=== PATIENT | female | born 1945 | race African-American/Black ===

== ENCOUNTER → 2017-02-16 | Outpatient (CLI) | payer MEDICARE, MEDICAID | LOC: WI 11:29 | PROVIDERS: ATTEND Internal Medicine Geriatric Medicine | DX: Z12.31 Encounter for screening mammogram for malignant neoplasm of breast (principal) | CPT/HCPCS: 77067; G0202 ==

== ENCOUNTER → 2017-08-16 | Outpatient (CLI) | payer MEDICARE, MEDICAID ==
--- NOTE | 2017-08-16 17:19 | RADIOLOGY REPORT (SQ) ---
EXAM DESCRIPTION: CHEST PA/LATERAL COMPLETED DATE/TIME: 08/16/2017 4:48 pm REASON FOR STUDY: PNEUMONIA, UNSPECIFIED ORGANISM COMPARISON: None. EXAM PARAMETERS: NUMBER OF VIEWS: two views TECHNIQUE: Digital Frontal and Lateral radiographic views of the chest acquired. RADIATION DOSE: NA LIMITATIONS: none FINDINGS: LUNGS AND PLEURA: No opacities, masses or pneumothorax. No pleural effusion. MEDIASTINUM AND HILAR STRUCTURES: No masses or contour abnormalities. HEART AND VASCULAR STRUCTURES: Heart normal size. No evidence for failure. BONES: No acute findings. HARDWARE: None in the chest. OTHER: No other significant finding. IMPRESSION: NO SIGNIFICANT RADIOGRAPHIC FINDING IN THE CHEST. TECHNICAL DOCUMENTATION: JOB ID: [id number] [employer]- All Rights Reserved
== END ==
LOC: OD 15:15
PROVIDERS: ATTEND Internal Medicine
DX: J18.9 Pneumonia, unspecified organism (principal)
CPT/HCPCS: 71020

== ENCOUNTER → 2018-02-23 | Outpatient (CLI) | payer MEDICARE, MEDICAID ==
--- NOTE | 2018-02-24 16:53 | WOMENS IMAGING REPORT ---
EXAM DESCRIPTION: 3D SCREENING MAMMO BILAT COMPLETED DATE/TIME: 02/23/2018 11:24 am REASON FOR STUDY: ROUTINE SCREENING; Z12.31 Z12.31 ENCNTR SCREEN MAMMOGRAM FOR MALIGNANT NEOPLASM O F MARIBELL COMPARISON: [id number] TECHNIQUE: Standard craniocaudal and mediolateral oblique views of each breast recorded using digita l acquisition and breast tomosynthesis. LIMITATIONS: None. FINDINGS: No masses, calcifications or architectural distortion. No areas of suspicion. Read with the assistance of CAD. .[facility] - R2 Cenova Version 1.3 .[facility] - R2 Cenova Version 1.3 .[facility] - R2 Cenova Version 2.4 .[facility] - R2 Cenova Version 2.4 .[facility] - R2 Firewall [employer] Version 9.2 IMPRESSION: NORMAL MAMMOGRAM. BIRADS 1. BREAST DENSITY: a. The breasts are almost entirely fatty. BIRAD: 1 NEGATIVE RECOMMENDATION: ROUTINE SCREENING COMMENT: The patient has been notified of the results by letter per SA requirements. Additional no tification policies are in place for contacting patient with suspicious or incomplete findings. Quality ID #[id number]: The [employer] recommends an annual screening mammogram for women aged 40 years or over. This facility utilizes a reminder system to ensure that all patients receive reminder letters, and/or direct phone calls for appointments. This includes reminders for routine scr eening mammograms, diagnostic mammograms, or other Breast Imaging Interventions when appropriate. Th is patient will be placed in the appropriate reminder system. The [employer] (ACR) has developed recommendations for screening MRI of the breast s in certain patient populations, to be used in conjunction with mammography. Breast MRI surveillanc e may be appropriate for women with more than 20% lifetime risk of developing breast cancer as deter mined by genetic testing, significant family history of the disease, or history of mantle radiation f or Hodgkins Disease. ACR Practice Guidelines 2008. DBT Technology DBT is a type of tomographic mammography. With conventional mammography, overlapping breast tissue ma y make lesions difficult to detect, even with good compression. DBT uses an x-ray tube that rotates a round the breast, taking images at different angles. These images are then combined to create thin sl ices of the breast that the radiologist can view as a 3D reconstruction. The [employer] unit can perform full-field digital mammograms (2D imaging); or DBT (3D imaging); or both, in a combination mode that quickly performs both the mammogram and the tomosynthesis scan while the breast is still compressed. PQRS 6045F: Fluoroscopic imaging is not utilized for breast tomosynthesis. TECHNICAL DOCUMENTATION: FINDING NUMBER: (1) ASSESSMENT: (1) JOB ID: [id number] [employer]- All Rights Reserved Reading location - IP/workstation name: [email or web address] [id number]
== END ==
LOC: WI 10:51
PROVIDERS: ATTEND Internal Medicine
DX: Z12.31 Encounter for screening mammogram for malignant neoplasm of breast (principal)
CPT/HCPCS: 77063; 77067

== ENCOUNTER 2019-01-31 14:59 | Day surgery (SDC) | payer MEDICARE, MEDICAID ==
[2019-01-31] MEDS ORDERED: ONDANSETRON HCL INJ/PF 4 MG/2 ML SDV ONE (15:30)
[2019-01-31] MEDS ORDERED: DIPHENHYDRAMINE HCL 50 MG/ML VIAL ONE (15:30)
[2019-01-31] MEDS ORDERED: EPINEPHRINE INJ 1 MG/10 ML DISP.SYRIN ONE (15:31)
[2019-01-31] MEDS ORDERED: GLUCAGON,HUMAN RECOMB 1 MG INJ ONE (15:31)
[2019-01-31] MEDS ORDERED: FLUMAZENIL INJ 0.5 MG/5 ML VIAL ONE (15:31)
[2019-01-31] MEDS ORDERED: NALOXONE HCL INJ/PF 0.4 MG/1 ML SDV ONE (15:31)
[2019-01-31] MEDS: MIDAZOLAM 2 MG/2 ML INJ ONE ×2 (15:48→15:54)
[2019-01-31] MEDS: FENTANYL CITRATE INJ/PF 100 MCG/2 ML AMPUL ONE ×2 (15:50→15:56)
--- NOTE | 2019-01-31 16:21 | Operative Report ---
Operative Report DATE OF SURGERY: 01/31/19 Operative Report: Pre-op diagnosis: Rectal bleeding history of colon polyps Post-op diagnosis: 1. Polyps in the transverse and descending colon 2. Internal hemorrhoids 3. Tight anal sphincter Surgery: Colonoscopy with polypectomy Medications: Versed 3mg, Fentanyl 100mcg IV push Tissue removed: Colon polyps Procedure: After informed consent obtained from patient, conscious sedation was achieved. A digital rectal examination was performed and this was unremarkable. The colonoscope was inserted into the rectum and advanced to the cecum. The appendiceal orifice and the terminal ileum were both identified. The mucosa was examined into details as the colonoscope was slowly pulled out of the patient. The endoscope was retroflexed in the rectum. Patient tolerated the procedure well. Findings Terminal ileum: Cecum: Normal Ascending colon: Normal Transverse colon: Three 3 to 4 mm polyps removed with a hot snare Descending colon: 4 mm polyp removed with a hot snare Sigmoid colon: Normal Rectum: Normal except for internal hemorrhoids. The anal sphincter was tight Plan: Await pathology OPERATION: .
[2019-01-31 17:11] VITALS: BP 135/54
== END 2019-01-31 17:15 | disposition home or self-care (01) ==
LOC: END 14:59
PROVIDERS: ATTEND Internal Medicine Gastroenterology
DX: D12.3 Benign neoplasm of transverse colon (principal); D12.4 Benign neoplasm of descending colon; K64.8 Other hemorrhoids; Z86.010 Personal history of colon polyps; K62.5 Hemorrhage of anus and rectum; K21.9 Gastro-esophageal reflux disease without esophagitis; Z87.11 Personal history of peptic ulcer disease; E66.9 Obesity, unspecified; E78.00 Pure hypercholesterolemia, unspecified; I10 Essential (primary) hypertension; I25.2 Old myocardial infarction; E11.9 Type 2 diabetes mellitus without complications; M06.9 Rheumatoid arthritis, unspecified; I20.9 Angina pectoris, unspecified; M32.9 Systemic lupus erythematosus, unspecified; Z68.43 Body mass index [BMI] 50.0-59.9, adult; Z79.899 Other long term (current) drug therapy; Z79.01 Long term (current) use of anticoagulants; Z79.51 Long term (current) use of inhaled steroids; Z86.718 Personal history of other venous thrombosis and embolism; Z91.041 Radiographic dye allergy status; Z91.09 Other allergy status, other than to drugs and biological substances
CPT/HCPCS: 45385; 82962; 88305 ×2; J2250; J3010; J0171; J1200; J1610; J2310; J2405; J3490

== ENCOUNTER 2020-06-15 10:38 | Inpatient (IN) | payer MEDICARE, MEDICAID ==
[2020-06-15] MEDS ORDERED: VANCOMYCIN HCL 0 MG in DEXTROSE 5%-WATER 250 ML IV NR (11:00)
[2020-06-15] MEDS ORDERED: ENOXAPARIN SODIUM INJ 40 MG/0.4 ML DISP.SYRIN SUBCUT ONE (12:00)
[2020-06-15 12:06] LABS: ABSOLUTE EOSINOPHILS # (AUTO) 0.1 10^3/uL (0.0-0.6); ABSOLUTE LYMPHOCYTES (AUTO) 0.7 10^3/uL (0.5-4.7); ABSOLUTE MONOCYTES (AUTO) 0.4 10^3/uL (0.1-1.4); ABSOLUTE NEUT (AUTO) 12.3 10^3/uL (1.7-8.2); BASOPHILS % (AUTO) 0.1 % (0-2); EOSINOPHILS % (AUTO) 0.7 % (0-6); HEMOGLOBIN 10.8 g/dL (12.0-15.5); LYMPHOCYTES % (AUTO) 5.5 % (13-45); MEAN CORPUSCULAR HEMOGLOBIN 33.7 pg (27.0-33.4); MEAN CORPUSCULAR HGB CONC 33.9 g/dL (32.0-36.0); MEAN CORPUSCULAR VOLUME 100 fl (80-97); MONOCYTES % (AUTO) 2.8 % (3-13); PLATELET COUNT 179 10^3/uL (150-450); RED BLOOD COUNT 3.21 10^6/uL (3.72-5.28); SEGMENTED NEUTROPHILS % (AUTO) 90.9 % (42-78); TOTAL CELLS COUNTED % (AUTO) 100 %; WHITE BLOOD COUNT 13.5 10^3/uL (4.0-10.5)
[2020-06-15] MEDS ORDERED: ALBUTEROL SULFATE 0.083% NEB 2.5 MG/3 ML AMPUL NEB PRN (12:22)
[2020-06-15] MEDS ORDERED: (PENDING PHARMACY ID) (Levocetirizine Dihydrochloride [Xyzal 5 Mg Tablet] 5 MG) PO PRN (12:23)
[2020-06-15] MEDS ORDERED: METFORMIN HCL 500 MG TABLET PO PRN (12:23)
[2020-06-15] MEDS ORDERED: (PENDING PHARMACY ID) (Ondansetron Hcl [Zofran 4 Mg Tablet] 4 MG) PO PRN (12:23)
[2020-06-15] MEDS ORDERED: FLUTICASONE NASAL SPRAY 50 MCG/SPRY 120 SPRAY/16 GM NASL PRN (12:23)
[2020-06-15 12:27] LABS: INTERNATIONAL RATION (INR) 1.46; PROTHROMBIN TIME 17.8 SEC (11.4-15.4)
[2020-06-15 12:28] LABS: ALBUMIN 3.1 g/dL (3.5-5.0); ALKALINE PHOSPHATASE 59 U/L (38-126); AMYLASE 44 U/L (30-110); ANION GAP 10 (5-19); ASPARTATE AMINO TRANSFERASE 25 U/L (14-36); BILIRUBIN,DIRECT 0.6 mg/dL (0.0-0.4); BILIRUBIN,TOTAL 1.5 mg/dL (0.2-1.3); BLOOD UREA NITROGEN 18 mg/dL (7-20); CALCIUM 9.7 mg/dL (8.4-10.2); CARBON DIOXIDE 27 mmol/L (22-30); CHLORIDE 98 mmol/L (98-107); GLUCOSE 115 mg/dL (75-110); PARTIAL THROMBOPLASTIN TIME 42.6 SEC (23.5-35.8); PHOSPHORUS 2.8 mg/dL (2.5-4.5); POTASSIUM 3.1 mmol/L (3.6-5.0); TOTAL PROTEIN 5.6 g/dL (6.3-8.2)
[2020-06-15] MEDS ORDERED: (PENDING PHARMACY ID) (Valsartan/Hydrochlorothiazide [Diovan Hct 160-12.5 Mg Tab] 1 TAB) PO SCH (12:30)
[2020-06-15 12:40] LABS: CREATINE KINASE MB 0.52 ng/mL (<4.55); TROPONIN I 0.022 ng/mL
[2020-06-15 12:44] LABS: FREE T4 (FREE THYROXINE) 1.98 ng/dL (0.78-2.19)
[2020-06-15] MEDS: METOPROLOL SUCCINATE 50 MG TAB.SR.24H PO SCH (12:50)
[2020-06-15 12:58] LABS: THYROID STIMULATING HORMONE 1.7 uIU/mL (0.47-4.68)
[2020-06-15] MEDS ORDERED: CETIRIZINE 5 MG TABLET PO PRN (13:03)
[2020-06-15] MEDS ORDERED: ONDANSETRON 4 MG TAB.RAPDIS PO PRN (13:05)
[2020-06-15 13:37] LABS: APPEARANCE,URINE CLOUDY; BILIRUBIN,URINE NEGATIVE (NEGATIVE); COLOR,URINE AMBER; GLUCOSE, URINE NEGATIVE (NEGATIVE); KETONES,URINE NEGATIVE (NEGATIVE); LEUKOCYTE ESTERASE,URINE NEGATIVE (NEGATIVE); NITRITE,URINE NEGATIVE (NEGATIVE); PROTEIN,URINE 100 mg/dL (NEGATIVE); URINE SPECIFIC GRAVITY 1.025; UROBILINOGEN,URINE NEGATIVE mg/dL (<2.0)
--- NOTE | 2020-06-15 13:47 | PDOC H&P ---
History of Present Illness Admission Date/PCP: 06/15/20 10:38 HAYES BRAY MD History of Present Illness: ANUSHKA ANNE is a 74 year old female she has multiple comorbid conditions including rheumatoid arthritis, morbid obesity, type 2 diabetes mellitus, sedentary lifestyle uses wheelchair for ambulation, I saw her in the office 2 days ago, specifically June 13, 2020 when she came for evaluation of left upper arm cellulitis, because of her multiple comorbid conditions I advised inpatient care but patient refused because she was concerned about the SARS-CoV-2 infection and the chance of being exposed to the virus so she preferred to be treated outpatient. She was prescribed clindamycin, MRSA was suspected as the most likely etiology of the cellulitis, she was advised to call me back in 2 days if no improvement. She comes in this morning complaining of worsening of her condition, I spoke to the nurse power and recovery supervisor for bed, she was admitted directly from home to the hospital. I saw her today in the hospital on the medical floor there is worsening of the cellulitis now extensive involving the forearm. Initially it was localized to the upper arm. Past Medical History Cardiac Medical History: Reports: Coronary Artery Disease - H/O VALVE D/O, DVT, Myocardial Infarction - 1997- MILD , Hyperlipidema, Hypertension - ON MEDS Pulmonary Medical History: Reports: Asthma - use inhaler PRN Endocrine Medical History: Reports: Diabetes Mellitus Type 2 GI Medical History: Reports: Hiatal Hernia - no px now Musculoskeltal Medical History: Reports: Arthritis - RA, OSTEO, PSORIATIC Hematology: Reports: Anemia - YRS AGO Past Surgical History Past Surgical History: Reports: Hysterectomy, Tubal Ligation Social History Smoking Status: Former Smoker Frequency of Alcohol Use: None Hx Recreational Drug Use: No Hx Prescription Drug Abuse: No Family History Family History: Reviewed & Not Pertinent Parental Family History Reviewed: Yes Children Family History Reviewed: Yes Sibling(s) Family History Reviewed.: Yes Medication/Allergy Home Medications: RX: Fluticasone Propionate [Flonase Nasal Kingston 50 Mcg/[place] 16 gm] 2 sprays NASL DAILYP PRN 12/21/14 RX: Folic Acid 1 mg PO SUMOWETHFRSA@1000 12/21/14 RX: Hydroxychloroquine Sulfate [Plaquenil 200 mg Tablet] 200 mg PO BID 12/21/14 RX: Metformin HCl [Glucophage 500 mg Tablet] 500 mg PO ASDIR PRN 12/21/14 RX: Pravastatin Sodium [Pravachol] 40 mg PO QHS 12/21/14 RX: Valsartan/Hydrochlorothiazide [Diovan Hct 160-12.5 mg Tab] 1 tab PO DAILY 12/21/14 Apixaban [Eliquis 5 mg Tablet] 5 mg PO Q12 03/12/15 Levocetirizine Dihydrochloride [Xyzal 5 mg Tablet] 5 mg PO DAILYP PRN 03/12/15 Metoprolol Succinate [Toprol Xl 50 mg Tab.sr] 100 mg PO DAILY 03/12/15 RX: Prednisone 5 mg PO DAILY 03/12/15 Cyclosporine 0.05% Oph Emulsio [Restasis 0.05% Opthalmic Droperette] 1 drop OU DAILY 01/30/19 Hydrocodone Bit/Acetaminophen [Hydrocodon-Acetaminophen 5-325] 1 each PO TIDP PRN 01/30/19 Ondansetron HCl [Zofran 4 mg Tablet] 4 mg PO Q4HP PRN 06/15/20 RX: Albuterol Sulfate [Ventolin 0.083% Neb 2.5 mg/3 mL Ampul] 1 vial NEB RTQ6HP PRN 06/15/20 RX: Ergocalciferol (Vitamin D2) [Drisdol 50,000 unit (1.25MG) Capsule] 50,000 unit PO MO@1000 06/15/20 RX: Methotrexate Sodium [Rheumatrex 2.5 mg Tablet] 20 mg PO TU@1000 06/15/20 RX: Tizanidine HCl [Zanaflex 4 mg Tablet] 4 mg PO Q8HP PRN 06/15/20 Allergies/Adverse Reactions: Iodinated Contrast Media [IV Dye, Iodine Containing] Allergy (Verified 01/31/19 14:55) ketorolac tromethamine [From Toradol] Allergy (Verified 01/31/19 14:55) Penicillins Allergy (Verified 01/31/19 14:55) Shellfish * [Shellfish] Allergy (Verified 01/31/19 14:55) acetaminophen [From Percocet] Adverse Reaction (Verified 01/31/19 14:55) oxycodone HCl [From Percocet] Adverse Reaction (Verified 01/31/19 14:55) Review of Systems Constitutional: PRESENT: chills, fever(s) Eyes: ABSENT: visual disturbances Ears: ABSENT: hearing changes Cardiovascular: ABSENT: chest pain, dyspnea on exertion, edema, orthropnea, palpitations Respiratory: ABSENT: cough, hemoptysis Gastrointestinal: PRESENT: nausea Genitourinary: ABSENT: dysuria, hematuria Musculoskeletal: ABSENT: joint swelling Integumentary: PRESENT: erythema Neurological: ABSENT: abnormal gait, abnormal speech, confusion, dizziness, focal weakness, syncope Psychiatric: ABSENT: anxiety, depression, homidical ideation, suicidal ideation Endocrine: ABSENT: cold intolerance, heat intolerance, menstrual abnormalities, polydipsia, polyuria Hematologic/Lymphatic: ABSENT: easy bleeding, easy bruising, lymphadenopathy Physical Exam Vital Signs: Temp Pulse Resp BP Pulse Ox 99.8 F 118 H 16 113/54 L 95 06/15/20 11:08 06/15/20 11:08 06/15/20 11:08 06/15/20 11:08 06/15/20 11:08 Intake & Output 06/14/20 06/15/20 06/16/20 06:59 06:59 06:59 Weight 91 kg General appearance: PRESENT: obese Head exam: PRESENT: atraumatic, normocephalic Eye exam: PRESENT: PERRLA Mouth exam: PRESENT: moist, tongue midline Neck exam: PRESENT: full ROM Respiratory exam: PRESENT: crackles Cardiovascular exam: PRESENT: RRR, +S1, +S2 Pulses: PRESENT: normal dorsalis pedis pul, +2 pedal pulses bilateral Vascular exam: PRESENT: normal capillary refill GI/Abdominal exam: PRESENT: normal bowel sounds, soft Rectal exam: PRESENT: deferred Extremities exam: PRESENT: other - There is erythema of the left upper arm Neurological exam: PRESENT: alert, awake, oriented to person, oriented to place, oriented to time, oriented to situation, CN II-XII grossly intact Psychiatric exam: PRESENT: appropriate affect, normal mood Skin exam: PRESENT: dry, intact, warm Results Laboratory Results: 06/15/20 11:56 06/15/20 11:56 06/15/20 06/15/20 06/15/20 11:56 11:56 11:56 WBC 13.5 H RBC 3.21 L Hgb 10.8 L Hct 32.0 L MCV 100 H MCH 33.7 H MCHC 33.9 RDW 16.0 H Plt Count 179 Seg Neutrophils % 90.9 H Sodium 135.0 L Potassium 3.1 L Chloride 98 Carbon Dioxide 27 Anion Gap 10 BUN 18 Creatinine 1.51 H Est GFR ( Amer) 41 L Glucose 115 H Calcium 9.7 Phosphorus 2.8 Magnesium 1.5 L Total Bilirubin 1.5 H AST 25 Alkaline Phosphatase 59 Ammonia Total Protein 5.6 L Albumin 3.1 L Amylase 44 Lipase 103.2 TSH 1.70 Free T4 1.98 06/15/20 11:56 WBC RBC Hgb Hct MCV MCH MCHC RDW Plt Count Seg Neutrophils % Sodium Potassium Chloride Carbon Dioxide Anion Gap BUN Creatinine Est GFR ( Amer) Glucose Calcium Phosphorus Magnesium Total Bilirubin AST Alkaline Phosphatase Ammonia < 8.7 L Total Protein Albumin Amylase Lipase TSH Free T4 06/15/20 06/15/20 11:56 11:56 Creatine Kinase 99 CK-MB (CK-2) 0.52 Troponin I 0.022 Assessment & Plan - Diagnosis (1) Cellulitis of left upper arm Is this a current diagnosis for this admission?: Yes Plan: She has penicillin allergy, she is empirically started on vancomycin and aztreonam, vancomycin will cover MRSA, aztreonam will cover potential gram-positive and gram-negative organisms (2) Failure of outpatient treatment Is this a current diagnosis for this admission?: Yes (3) Rheumatoid arthritis Qualifiers: Rheumatoid arthritis location: unspecified site Rheumatoid factor presence: with rheumatoid factor Qualified Code(s): M05.9 - Rheumatoid arthritis with rheumatoid factor, unspecified Is this a current diagnosis for this admission?: Yes (4) SLE (systemic lupus erythematosus related syndrome) Is this a current diagnosis for this admission?: Yes (5) T2DM (type 2 diabetes mellitus) Qualifiers: Diabetes mellitus senior care insulin use: without senior care use Diabetes mellitus complication status: with neurologic complications Diabetes mellitus complication detail: with polyneuropathy Qualified Code(s): E11.42 - Type 2 diabetes mellitus with diabetic polyneuropathy Is this a current diagnosis for this admission?: Yes Plan: Continue present treatment (6) Personal history of DVT (deep vein thrombosis) Is this a current diagnosis for this admission?: Yes Plan: Continue oral anticoagulant (7) Morbid obesity Is this a current diagnosis for this admission?: Yes (8) Hypokalemia Is this a current diagnosis for this admission?: Yes Plan: Replace potassium (9) Hypomagnesemia Is this a current diagnosis for this admission?: Yes Plan: Replace magnesium - Time Time Spent: Greater than 70 Minutes Anticipated Discharge Disposition: Home, Self Care Anticipated Discharge Timeframe: within 7 days
[2020-06-15 13:56] LABS: URINE AMPHETAMINES SCREEN NEGATIVE; URINE BARBITURATES SCREEN NEGATIVE; URINE BENZODIAZEPINES SCREEN NEGATIVE; URINE COCAINE SCREEN NEGATIVE; URINE MARIJUANA (THC) SCREEN NEGATIVE; URINE METHADONE SCREEN NEGATIVE; URINE PHENCYCLIDINE SCREEN NEGATIVE
[2020-06-15] MEDS ORDERED: MAGNESIUM SULFATE/D5W 1 GM/100 ML RTUPB IV ONE (14:30)
[2020-06-15] MEDS: ONDANSETRON HCL INJ/PF 4 MG/2 ML SDV IV PRN ×3 (14:36→23:52)
[2020-06-15] MEDS: HYDROCHLOROTHIAZIDE 12.5 MG TABLET PO SCH (14:37)
[2020-06-15] MEDS: CYCLOSPORINE 0.05% OPH EMULSIO 0.4 ML DROPERETTE OU SCH (14:38)
[2020-06-15] MEDS: HYDROXYCHLOROQUINE SULFATE 200 MG TABLET PO SCH ×2 (14:38→21:12)
[2020-06-15] MEDS: VALSARTAN 160 MG TABLET PO SCH (14:38)
[2020-06-15 15:02] LABS: C DIFFICILE GDH NEGATIVE (NEGATIVE)
[2020-06-15] MEDS: AZTREONAM 1 GM in DEXTROSE 5%-WATER 50 ML IV SCH ×2 (16:01→23:52)
[2020-06-15 17:05] LABS: CREATINE KINASE MB 0.41 ng/mL (<4.55); TROPONIN I 0.023 ng/mL
[2020-06-15] MEDS: POTASSI CL 20 MEQ/50 ML RIDER 20 MEQ/50 ML RTUPB IV SCH ×2 (17:20→19:35)
[2020-06-15] MEDS: VANCOMYCIN HCL 1,000 MG in DEXTROSE 5%-WATER 250 ML IV SCH (21:10)
[2020-06-15] MEDS: APIXABAN 5 MG TABLET PO SCH (21:11)
[2020-06-15] MEDS: ATORVASTATIN CALCIUM 10 MG TABLET PO SCH (21:12)
[2020-06-15] MEDS ORDERED: (PENDING PHARMACY ID) (Pravastatin Sodium [Pravachol] 40 MG) PO SCH (22:00)
[2020-06-15 23:46] LABS: CREATINE KINASE MB 0.36 ng/mL (<4.55); TROPONIN I 0.02 ng/mL
[2020-06-16] MEDS: NORMAL SALINE 1000 ML 1,000 ML IV PRN ×2 (03:04→22:39)
[2020-06-16 06:31] LABS: ABSOLUTE EOSINOPHILS # (AUTO) 0.2 10^3/uL (0.0-0.6); ABSOLUTE LYMPHOCYTES (AUTO) 0.9 10^3/uL (0.5-4.7); ABSOLUTE MONOCYTES (AUTO) 0.4 10^3/uL (0.1-1.4); ABSOLUTE NEUT (AUTO) 6.3 10^3/uL (1.7-8.2); BASOPHILS % (AUTO) 0.5 % (0-2); EOSINOPHILS % (AUTO) 2.3 % (0-6); HEMATOCRIT 26.8 % (36.0-47.0); HEMOGLOBIN 9.2 g/dL (12.0-15.5); LYMPHOCYTES % (AUTO) 11.7 % (13-45); MEAN CORPUSCULAR HEMOGLOBIN 34.3 pg (27.0-33.4); MEAN CORPUSCULAR HGB CONC 34.4 g/dL (32.0-36.0); MEAN CORPUSCULAR VOLUME 100 fl (80-97); MONOCYTES % (AUTO) 4.9 % (3-13); PLATELET COUNT 185 10^3/uL (150-450); RED BLOOD COUNT 2.68 10^6/uL (3.72-5.28); RED CELL DISTRIBUTION WIDTH 16.3 % (11.5-14.0); SEGMENTED NEUTROPHILS % (AUTO) 80.6 % (42-78); TOTAL CELLS COUNTED % (AUTO) 100 %; WHITE BLOOD COUNT 7.8 10^3/uL (4.0-10.5)
[2020-06-16] MEDS: AZTREONAM 1 GM in DEXTROSE 5%-WATER 50 ML IV SCH ×3 (06:34→21:05)
[2020-06-16 06:52] LABS: ALBUMIN 2.7 g/dL (3.5-5.0); ALKALINE PHOSPHATASE 53 U/L (38-126); ANION GAP 9 (5-19); ASPARTATE AMINO TRANSFERASE 23 U/L (14-36); BILIRUBIN,DIRECT 0.4 mg/dL (0.0-0.4); BILIRUBIN,TOTAL 0.9 mg/dL (0.2-1.3); BLOOD UREA NITROGEN 23 mg/dL (7-20); CARBON DIOXIDE 23 mmol/L (22-30); CHLORIDE 102 mmol/L (98-107); CHOLESTEROL 140.37 mg/dL (0-200); GLUCOSE 97 mg/dL (75-110); POTASSIUM 3.9 mmol/L (3.6-5.0); TOTAL PROTEIN 5.1 g/dL (6.3-8.2); TRIGLYCERIDES 122 mg/dL (<150)
[2020-06-16 07:03] LABS: DIRECT LDL 81 mg/dL (<100)
[2020-06-16] MEDS: HYDROXYCHLOROQUINE SULFATE 200 MG TABLET PO SCH ×2 (09:38→21:05)
[2020-06-16] MEDS: APIXABAN 5 MG TABLET PO SCH ×2 (09:39→21:05)
[2020-06-16] MEDS: METOPROLOL SUCCINATE 50 MG TAB.SR.24H PO SCH ×2 (09:39→09:45)
[2020-06-16] MEDS: HYDROCHLOROTHIAZIDE 12.5 MG TABLET PO SCH (09:40)
[2020-06-16] MEDS: VALSARTAN 160 MG TABLET PO SCH (09:40)
[2020-06-16] MEDS: CYCLOSPORINE 0.05% OPH EMULSIO 0.4 ML DROPERETTE OU SCH (09:41)
[2020-06-16] MEDS: FOLIC ACID 1 MG TABLET PO SCH (09:42)
[2020-06-16] MEDS ORDERED: ENOXAPARIN SODIUM INJ 40 MG/0.4 ML DISP.SYRIN SUBCUT SCH (10:00)
--- NOTE | 2020-06-16 12:11 | RADIOLOGY REPORT (SQ) ---
EXAM DESCRIPTION: U/S RETROPERITON (RENAL/AORTA) IMAGES COMPLETED DATE/TIME: 06/16/2020 11:56 am REASON FOR STUDY: acute kidney injury COMPARISON: None. TECHNIQUE: Dynamic and static grayscale images acquired of the kidneys and bladder and recorded on P ACS. Additional selected color Doppler and spectral images recorded. LIMITATIONS: None. FINDINGS: RIGHT KIDNEY: 8.6 cm. Normal echogenicity. No solid or suspicious masses. No hydron ephrosis. No calcifications. LEFT KIDNEY: 9.1 cm. 2 cm cyst upper pole. No solid or suspicious masses. No hydronephrosis. No calcifications. BLADDER: Not visualized. OTHER FINDINGS: No other significant finding. IMPRESSION: No hydronephrosis. TECHNICAL DOCUMENTATION: JOB ID: [id number] 2010 [employer]- All Rights Reserved Reading location - IP/workstation name: [email or web address]
--- NOTE | 2020-06-16 12:15 | PDOC PROGRESS REPORT ---
Subjective Progress Note for:: 06/16/20 Subjective:: Patient seen by the bedside, she had episode of large-volume diarrhea since yesterday, the serum creatinine is 2 from today's lab work suggesting prerenal azotemia. The stool studies negative for C. difficile toxin, the diarrhea is most likely related to the clindamycin that she took outpatient for the cellulitis. Reason For Visit: SEVERE CELLULITIS OF THE LEFT UPPER EXTREMITY, Physical Exam Vital Signs: Temp Pulse Resp BP Pulse Ox 98.1 F 86 16 100/45 L 100 06/16/20 10:59 06/16/20 10:59 06/16/20 10:59 06/16/20 10:59 06/16/20 10:59 Intake & Output 06/15/20 06/16/20 06/17/20 06:59 06:59 06:59 Intake Total 630 Output Total 40 Balance 590 Weight 91 kg General appearance: PRESENT: no acute distress Eye exam: PRESENT: PERRLA Respiratory exam: PRESENT: clear to auscultation saúl Cardiovascular exam: PRESENT: +S1, +S2 GI/Abdominal exam: PRESENT: soft Neurological exam: PRESENT: alert Results Laboratory Results: 06/16/20 04:44 06/16/20 04:44 06/15/20 06/15/20 06/15/20 11:56 11:56 11:56 WBC RBC Hgb Hct MCV MCH MCHC RDW Plt Count Seg Neutrophils % Sodium 135.0 L Potassium 3.1 L Chloride 98 Carbon Dioxide 27 Anion Gap 10 BUN 18 Creatinine 1.51 H Est GFR ( Amer) 41 L Glucose 115 H Calcium 9.7 Phosphorus 2.8 Magnesium 1.5 L Total Bilirubin 1.5 H AST 25 Alkaline Phosphatase 59 Ammonia < 8.7 L C-Reactive Protein Total Protein 5.6 L Albumin 3.1 L Triglycerides Cholesterol LDL Cholesterol Direct VLDL Cholesterol HDL Cholesterol Amylase 44 Lipase 103.2 TSH 1.70 Free T4 1.98 Urine Color Urine Appearance Urine pH Ur Specific [place] Urine Protein Urine Glucose (UA) Urine Ketones Urine Blood Urine Nitrite Ur Leukocyte Esterase Urine WBC (Auto) Urine RBC (Auto) Stool Occult Blood 06/15/20 06/15/20 06/15/20 11:56 12:58 14:10 WBC RBC Hgb Hct MCV MCH MCHC RDW Plt Count Seg Neutrophils % Sodium Potassium Chloride Carbon Dioxide Anion Gap BUN Creatinine Est GFR ( Amer) Glucose Calcium Phosphorus Magnesium Total Bilirubin AST Alkaline Phosphatase Ammonia C-Reactive Protein 344.3 H Total Protein Albumin Triglycerides Cholesterol LDL Cholesterol Direct VLDL Cholesterol HDL Cholesterol Amylase Lipase TSH Free T4 Urine Color KUSHAL Urine Appearance CLOUDY Urine pH 5.0 Ur Specific [place] 1.025 Urine Protein 100 H Urine Glucose (UA) NEGATIVE Urine Ketones NEGATIVE Urine Blood NEGATIVE Urine Nitrite NEGATIVE Ur Leukocyte Esterase NEGATIVE Urine WBC (Auto) 31 Urine RBC (Auto) 8 Stool Occult Blood NEGATIVE 06/16/20 06/16/20 04:44 04:44 WBC 7.8 RBC 2.68 L Hgb 9.2 L Hct 26.8 L MCV 100 H MCH 34.3 H MCHC 34.4 RDW 16.3 H Plt Count 185 Seg Neutrophils % 80.6 H Sodium 133.6 L Potassium 3.9 Chloride 102 Carbon Dioxide 23 Anion Gap 9 BUN 23 H Creatinine 2.03 H Est GFR ( Amer) 29 L Glucose 97 Calcium 9.0 Phosphorus Magnesium Total Bilirubin 0.9 AST 23 Alkaline Phosphatase 53 Ammonia C-Reactive Protein Total Protein 5.1 L Albumin 2.7 L Triglycerides 122 Cholesterol 140.37 LDL Cholesterol Direct 81 VLDL Cholesterol 24.0 HDL Cholesterol 52 Amylase Lipase TSH Free T4 Urine Color Urine Appearance Urine pH Ur Specific [place] Urine Protein Urine Glucose (UA) Urine Ketones Urine Blood Urine Nitrite Ur Leukocyte Esterase Urine WBC (Auto) Urine RBC (Auto) Stool Occult Blood 06/15/20 06/15/20 06/15/20 11:56 11:56 16:20 Creatine Kinase 99 79 CK-MB (CK-2) 0.52 Troponin I 0.022 06/15/20 06/15/20 06/15/20 16:20 22:58 22:58 Creatine Kinase 69 CK-MB (CK-2) 0.41 0.36 Troponin I 0.023 0.020 Assessment & Plan - Diagnosis (1) Cellulitis of left upper arm Is this a current diagnosis for this admission?: Yes Plan: There is improvement in the cellulitis continue the IV vancomycin and aztreonam (2) Failure of outpatient treatment Is this a current diagnosis for this admission?: Yes (3) Rheumatoid arthritis Qualifiers: Rheumatoid arthritis location: unspecified site Rheumatoid factor presence: with rheumatoid factor Qualified Code(s): M05.9 - Rheumatoid arthritis with rheumatoid factor, unspecified Is this a current diagnosis for this admission?: Yes (4) SLE (systemic lupus erythematosus related syndrome) Is this a current diagnosis for this admission?: Yes (5) T2DM (type 2 diabetes mellitus) Qualifiers: Diabetes mellitus residential insulin use: without terminal manager use Diabetes mellitus complication status: with neurologic complications Diabetes mellitus complication detail: with polyneuropathy Qualified Code(s): E11.42 - Type 2 diabetes mellitus with diabetic polyneuropathy Is this a current diagnosis for this admission?: Yes (6) Personal history of DVT (deep vein thrombosis) Is this a current diagnosis for this admission?: Yes (7) Morbid obesity Is this a current diagnosis for this admission?: Yes (8) Hypokalemia Is this a current diagnosis for this admission?: Yes (9) Hypomagnesemia Is this a current diagnosis for this admission?: Yes (10) Acute kidney injury Is this a current diagnosis for this admission?: Yes Plan: This is most likely prerenal azotemia from the diarrhea due to volume loss, increase normal saline infusion rate from 50 to 120 cc/h. Obtain kidney ultrasound to rule out post renal azotemia though unlikely - Time Time Spent with patient: 35 or more minutes Level of Care: MEDICAL Medications reviewed and adjusted accordingly: Yes Anticipated discharge: Home - Inpatient Certification Based on my medical assessment, after consideration of the patient's comorbidities, presenting symptoms, or acuity I expect that the services needed warrant INPATIENT care.: Yes I certify that my determination is in accordance with my understanding of Medicare's requirements for reasonable and necessary INPATIENT services [42 CFR 412.3e].: Yes
[2020-06-16 13:24] LABS: URINE PROTEIN 18.8 mg/dL (<12)
[2020-06-16 13:26] LABS: URINE CREATININE 460.3 mg/dL (15-278)
[2020-06-16] MEDS ORDERED: DIPHENOXYLATE HCL/ATROP SULF 2.5-0.025 MG TABLET PO PRN (14:39)
[2020-06-16] MEDS: LACTOBACILLUS ACIDOPHILUS 250 MG TAB PO SCH ×2 (14:52→21:05)
[2020-06-16] MEDS: DIPHENOXYLATE HCL/ATROP SULF 2.5-0.025 MG TABLET PO PRN ×2 (14:52→21:18)
[2020-06-16] MEDS: VANCOMYCIN HCL 1,000 MG in DEXTROSE 5%-WATER 250 ML IV SCH (14:53)
[2020-06-16] MEDS: ATORVASTATIN CALCIUM 10 MG TABLET PO SCH (21:05)
[2020-06-17] MEDS: ONDANSETRON HCL INJ/PF 4 MG/2 ML SDV IV PRN ×2 (00:21→12:52)
[2020-06-17] MEDS: ACETAMINOPHEN SOLN 325 MG/10.15 ML UDCUP PO PRN ×3 (00:22→20:34)
[2020-06-17] MEDS: AZTREONAM 1 GM in DEXTROSE 5%-WATER 50 ML IV SCH ×3 (06:11→23:13)
[2020-06-17] MEDS: DIPHENOXYLATE HCL/ATROP SULF 2.5-0.025 MG TABLET PO PRN (06:11)
[2020-06-17 07:04] LABS: ABSOLUTE EOSINOPHILS # (AUTO) 0.4 10^3/uL (0.0-0.6); ABSOLUTE LYMPHOCYTES (AUTO) 0.8 10^3/uL (0.5-4.7); ABSOLUTE MONOCYTES (AUTO) 0.7 10^3/uL (0.1-1.4); ABSOLUTE NEUT (AUTO) 5.5 10^3/uL (1.7-8.2); BASOPHILS % (AUTO) 0.3 % (0-2); EOSINOPHILS % (AUTO) 4.9 % (0-6); HEMATOCRIT 26.2 % (36.0-47.0); LYMPHOCYTES % (AUTO) 11.5 % (13-45); MEAN CORPUSCULAR HEMOGLOBIN 34.5 pg (27.0-33.4); MEAN CORPUSCULAR HGB CONC 34.2 g/dL (32.0-36.0); MEAN CORPUSCULAR VOLUME 101 fl (80-97); MONOCYTES % (AUTO) 9.1 % (3-13); PLATELET COUNT 191 10^3/uL (150-450); RED CELL DISTRIBUTION WIDTH 16.1 % (11.5-14.0); SEGMENTED NEUTROPHILS % (AUTO) 74.2 % (42-78); TOTAL CELLS COUNTED % (AUTO) 100 %; WHITE BLOOD COUNT 7.4 10^3/uL (4.0-10.5)
[2020-06-17 08:44] LABS: ALBUMIN 2.6 g/dL (3.5-5.0); ALKALINE PHOSPHATASE 50 U/L (38-126); ANION GAP 9 (5-19); ASPARTATE AMINO TRANSFERASE 27 U/L (14-36); BILIRUBIN,DIRECT 0.4 mg/dL (0.0-0.4); BILIRUBIN,TOTAL 0.6 mg/dL (0.2-1.3); BLOOD UREA NITROGEN 27 mg/dL (7-20); CALCIUM 8.7 mg/dL (8.4-10.2); CARBON DIOXIDE 21 mmol/L (22-30); CHLORIDE 104 mmol/L (98-107); GLUCOSE 81 mg/dL (75-110); POTASSIUM 4.4 mmol/L (3.6-5.0)
[2020-06-17] MEDS ORDERED: ERGOCALCIFEROL (VITAMIN D2) 50000 UNIT (1.25 MG) CAPSULE PO SCH (10:00)
[2020-06-17] MEDS: FOLIC ACID 1 MG TABLET PO SCH (10:31)
[2020-06-17] MEDS: APIXABAN 5 MG TABLET PO SCH ×2 (10:31→23:12)
[2020-06-17] MEDS: LACTOBACILLUS ACIDOPHILUS 250 MG TAB PO SCH ×2 (10:31→23:12)
[2020-06-17] MEDS: NORMAL SALINE 1000 ML 1,000 ML IV PRN (10:36)
[2020-06-17] MEDS: CYCLOSPORINE 0.05% OPH EMULSIO 0.4 ML DROPERETTE OU SCH (10:41)
[2020-06-17] MEDS: HYDROXYCHLOROQUINE SULFATE 200 MG TABLET PO SCH ×2 (10:41→23:12)
[2020-06-17] MEDS: VALSARTAN 160 MG TABLET PO SCH (10:44)
[2020-06-17] MEDS: HYDROCHLOROTHIAZIDE 12.5 MG TABLET PO SCH (10:44)
[2020-06-17] MEDS: METOPROLOL SUCCINATE 50 MG TAB.SR.24H PO SCH (10:44)
[2020-06-17] MEDS ORDERED: VANCOMYCIN HCL 750 MG in DEXTROSE 5%-WATER 250 ML IV SCH (15:00)
--- NOTE | 2020-06-17 20:22 | PDOC PROGRESS REPORT ---
Subjective Progress Note for:: 06/17/20 Subjective:: Patient seen by the bedside, the serum creatinine is 2.62, the blood pressures on the low side, the cellulitis in the left upper extremity is improving,She said she feels better Reason For Visit: SEVERE CELLULITIS OF THE LEFT UPPER EXTREMITY, Physical Exam Vital Signs: Temp Pulse Resp BP Pulse Ox 99.9 F 92 19 92/35 L 97 06/17/20 15:52 06/17/20 15:52 06/17/20 15:52 06/17/20 15:52 06/17/20 15:52 Intake & Output 06/16/20 06/17/20 06/18/20 06:59 06:59 06:59 Intake Total 880 1899 470 Output Total 40 Balance 840 1899 470 Weight 91 kg 92 kg 102.5 kg General appearance: PRESENT: no acute distress Eye exam: PRESENT: PERRLA Respiratory exam: PRESENT: clear to auscultation saúl Cardiovascular exam: PRESENT: +S1, +S2 GI/Abdominal exam: PRESENT: soft Extremities exam: PRESENT: other - There is improvement of left upper extremity cellulitis Neurological exam: PRESENT: alert, CN II-XII grossly intact Results Laboratory Results: 06/17/20 06:03 06/17/20 06:03 06/17/20 06/17/20 06:03 06:03 WBC 7.4 RBC 2.60 L Hgb 9.0 L Hct 26.2 L MCV 101 H MCH 34.5 H MCHC 34.2 RDW 16.1 H Plt Count 191 Seg Neutrophils % 74.2 Sodium 134.1 L Potassium 4.4 Chloride 104 Carbon Dioxide 21 L Anion Gap 9 BUN 27 H Creatinine 2.62 H Est GFR ( Amer) 22 L Glucose 81 Calcium 8.7 Total Bilirubin 0.6 AST 27 Alkaline Phosphatase 50 Total Protein 5.0 L Albumin 2.6 L 06/15/20 06/15/20 06/15/20 11:56 11:56 16:20 Creatine Kinase 99 79 CK-MB (CK-2) 0.52 Troponin I 0.022 06/15/20 06/15/20 06/15/20 16:20 22:58 22:58 Creatine Kinase 69 CK-MB (CK-2) 0.41 0.36 Troponin I 0.023 0.020 Impressions: Renal Ultrasound 06/16/20 00:00 IMPRESSION: No hydronephrosis. Assessment & Plan - Diagnosis (1) Cellulitis of left upper arm Is this a current diagnosis for this admission?: Yes Plan: Continue IV antibiotic (2) Failure of outpatient treatment Is this a current diagnosis for this admission?: Yes (3) Rheumatoid arthritis Qualifiers: Rheumatoid arthritis location: unspecified site Rheumatoid factor presence: with rheumatoid factor Qualified Code(s): M05.9 - Rheumatoid arthritis with rheumatoid factor, unspecified Is this a current diagnosis for this admission?: Yes (4) SLE (systemic lupus erythematosus related syndrome) Is this a current diagnosis for this admission?: Yes (5) T2DM (type 2 diabetes mellitus) Qualifiers: Diabetes mellitus custodial insulin use: without long term care social worker use Diabetes mellitus complication status: with neurologic complications Diabetes mellitus complication detail: with polyneuropathy Qualified Code(s): E11.42 - Type 2 diabetes mellitus with diabetic polyneuropathy Is this a current diagnosis for this admission?: Yes (6) Personal history of DVT (deep vein thrombosis) Is this a current diagnosis for this admission?: Yes (7) Morbid obesity Is this a current diagnosis for this admission?: Yes (8) Hypokalemia Is this a current diagnosis for this admission?: Yes (9) Hypomagnesemia Is this a current diagnosis for this admission?: Yes (10) Acute kidney injury Is this a current diagnosis for this admission?: Yes Plan: She has acute kidney injury, with worsening serum creatinine with a background of low blood pressure, this probably ATN, increase normal saline at 250 cc/h up to 3 L then 120 cc/h (11) Diarrhea Qualifiers: Diarrhea type: unspecified type Qualified Code(s): R19.7 - Diarrhea, unspecified Is this a current diagnosis for this admission?: Yes Plan: Stool negative for Clostridium difficile - Time Time Spent with patient: 25-34 minutes Level of Care: IMCU Medications reviewed and adjusted accordingly: Yes Anticipated discharge: Home Anticipated DC Timeframe: within 72 hours
[2020-06-17] MEDS: ATORVASTATIN CALCIUM 10 MG TABLET PO SCH (23:05)
[2020-06-18] MEDS: AZTREONAM 1 GM in DEXTROSE 5%-WATER 50 ML IV SCH ×3 (05:06→21:33)
[2020-06-18] MEDS: NORMAL SALINE 1000 ML 1,000 ML IV PRN ×3 (05:06→15:32)
[2020-06-18 06:40] LABS: ABSOLUTE EOSINOPHILS # (AUTO) 0.4 10^3/uL (0.0-0.6); ABSOLUTE LYMPHOCYTES (AUTO) 0.9 10^3/uL (0.5-4.7); ABSOLUTE MONOCYTES (AUTO) 0.9 10^3/uL (0.1-1.4); ABSOLUTE NEUT (AUTO) 4.8 10^3/uL (1.7-8.2); BASOPHILS % (AUTO) 0.2 % (0-2); EOSINOPHILS % (AUTO) 5.6 % (0-6); HEMATOCRIT 25.1 % (36.0-47.0); HEMOGLOBIN 8.5 g/dL (12.0-15.5); LYMPHOCYTES % (AUTO) 13.3 % (13-45); MEAN CORPUSCULAR HEMOGLOBIN 34.5 pg (27.0-33.4); MEAN CORPUSCULAR VOLUME 102 fl (80-97); MONOCYTES % (AUTO) 12.9 % (3-13); PLATELET COUNT 225 10^3/uL (150-450); RED BLOOD COUNT 2.47 10^6/uL (3.72-5.28); RED CELL DISTRIBUTION WIDTH 16.2 % (11.5-14.0); TOTAL CELLS COUNTED % (AUTO) 100 %; WHITE BLOOD COUNT 7.1 10^3/uL (4.0-10.5)
[2020-06-18 07:16] LABS: ALBUMIN 2.5 g/dL (3.5-5.0); ALKALINE PHOSPHATASE 50 U/L (38-126); ANION GAP 7 (5-19); ASPARTATE AMINO TRANSFERASE 33 U/L (14-36); BILIRUBIN,DIRECT 0.3 mg/dL (0.0-0.4); BILIRUBIN,TOTAL 0.3 mg/dL (0.2-1.3); BLOOD UREA NITROGEN 24 mg/dL (7-20); CALCIUM 8.4 mg/dL (8.4-10.2); CARBON DIOXIDE 21 mmol/L (22-30); CHLORIDE 106 mmol/L (98-107); GLUCOSE 95 mg/dL (75-110); POTASSIUM 3.5 mmol/L (3.6-5.0); TOTAL PROTEIN 4.9 g/dL (6.3-8.2)
[2020-06-18] MEDS: ACETAMINOPHEN SOLN 325 MG/10.15 ML UDCUP PO PRN ×3 (10:17→21:32)
[2020-06-18] MEDS: LACTOBACILLUS ACIDOPHILUS 250 MG TAB PO SCH ×2 (10:19→21:32)
[2020-06-18] MEDS: APIXABAN 5 MG TABLET PO SCH ×2 (10:19→21:32)
[2020-06-18] MEDS: CYCLOSPORINE 0.05% OPH EMULSIO 0.4 ML DROPERETTE OU SCH (10:20)
[2020-06-18] MEDS: HYDROXYCHLOROQUINE SULFATE 200 MG TABLET PO SCH ×2 (10:22→21:32)
[2020-06-18] MEDS: HYDROCHLOROTHIAZIDE 12.5 MG TABLET PO SCH (10:29)
[2020-06-18] MEDS: VALSARTAN 160 MG TABLET PO SCH (10:29)
[2020-06-18] MEDS ORDERED: ALBUTEROL SULFATE HFA (90 MCG/PUFF) 8 GM MDI IH PRN (10:44)
[2020-06-18] MEDS: METOPROLOL SUCCINATE 50 MG TAB.SR.24H PO SCH (10:57)
[2020-06-18] MEDS: ALBUTEROL SULFATE 0.083% NEB 2.5 MG/3 ML AMPUL NEB PRN ×2 (11:15→21:03)
--- NOTE | 2020-06-18 11:32 | RADIOLOGY REPORT (SQ) ---
EXAM DESCRIPTION: CHEST SINGLE VIEW IMAGES COMPLETED DATE/TIME: 06/18/2020 11:20 am REASON FOR STUDY: TEMPERATURE AND SHORTNESS OF BREATH COMPARISON: 08/16/2017 EXAM PARAMETERS: NUMBER OF VIEWS: One view. TECHNIQUE: Single frontal radiographic view of the chest acquired. RADIATION DOSE: NA LIMITATIONS: None. FINDINGS: LUNGS AND PLEURA: No opacities, masses or pneumothorax. No pleural effusion. MEDIASTINUM AND HILAR STRUCTURES: No masses. Contour normal. HEART AND VASCULAR STRUCTURES: Heart normal in size. Normal vasculature. BONES: No acute findings. HARDWARE: None in the chest. OTHER: No other significant finding. IMPRESSION: NO ACUTE RADIOGRAPHIC FINDING IN THE CHEST. TECHNICAL DOCUMENTATION: JOB ID: [id number] 2010 [employer]- All Rights Reserved Reading location - IP/workstation name: [email or web address]
[2020-06-18] MEDS: DIPHENOXYLATE HCL/ATROP SULF 2.5-0.025 MG TABLET PO PRN (14:53)
[2020-06-18] MEDS ORDERED: VANCOMYCIN HCL 1,000 MG in DEXTROSE 5%-WATER 250 ML IV SCH (15:00)
[2020-06-18] MEDS ORDERED: LORAZEPAM 1 MG TABLET PO PRN (18:25)
--- NOTE | 2020-06-18 20:24 | PDOC PROGRESS REPORT ---
Subjective Progress Note for:: 06/18/20 Subjective:: Patient continues to have temperature spikes, the cellulitis of the left upper extremity is improved there is an area of firm consistency in the elbow that is tender to touch we need to rule out an abscess MRI of the elbow will be ordered She also have fungal dermatitis, tinea corporis, start Lamisil. She has rheumatoid arthritis she is having increased inflammation of the joints of the hand ,. On admission the disease modifying antirheumatic drug, methotrexate was held Reason For Visit: SEVERE CELLULITIS OF THE LEFT UPPER EXTREMITY, Physical Exam Vital Signs: Temp Pulse Resp BP Pulse Ox 98.2 F 103 H 18 108/39 L 98 06/18/20 16:01 06/18/20 16:01 06/18/20 16:01 06/18/20 16:01 06/18/20 16:01 Intake & Output 06/17/20 06/18/20 06/19/20 06:59 06:59 06:59 Intake Total 5102 343 5827 Balance 9723 642 1126 Weight 92 kg 92 kg 106.3 kg General appearance: PRESENT: no acute distress Eye exam: PRESENT: PERRLA Respiratory exam: PRESENT: clear to auscultation saúl Cardiovascular exam: PRESENT: +S1, +S2 GI/Abdominal exam: PRESENT: soft Neurological exam: PRESENT: alert Results Laboratory Results: 06/18/20 05:55 06/18/20 05:55 06/18/20 06/18/20 06/18/20 05:55 05:55 11:12 WBC 7.1 RBC 2.47 L Hgb 8.5 L Hct 25.1 L MCV 102 H MCH 34.5 H MCHC 34.0 RDW 16.2 H Plt Count 225 Seg Neutrophils % 68.0 Sodium 134.3 L Potassium 3.5 L Chloride 106 Carbon Dioxide 21 L Anion Gap 7 BUN 24 H Creatinine 2.21 H Est GFR ( Amer) 26 L Glucose 95 Lactic Acid 1.5 Calcium 8.4 Total Bilirubin 0.3 AST 33 Alkaline Phosphatase 50 Total Protein 4.9 L Albumin 2.5 L 06/15/20 06/15/20 06/15/20 11:56 11:56 16:20 Creatine Kinase 99 79 CK-MB (CK-2) 0.52 Troponin I 0.022 06/15/20 06/15/20 06/15/20 16:20 22:58 22:58 Creatine Kinase 69 CK-MB (CK-2) 0.41 0.36 Troponin I 0.023 0.020 Impressions: Renal Ultrasound 06/16/20 00:00 IMPRESSION: No hydronephrosis. Chest X-Ray 06/18/20 00:00 IMPRESSION: NO ACUTE RADIOGRAPHIC FINDING IN THE CHEST. Assessment & Plan - Diagnosis (1) Cellulitis of left upper arm Is this a current diagnosis for this admission?: Yes Plan: Continue IV antibiotic (2) Failure of outpatient treatment Is this a current diagnosis for this admission?: Yes (3) Rheumatoid arthritis Qualifiers: Rheumatoid arthritis location: unspecified site Rheumatoid factor presence: with rheumatoid factor Qualified Code(s): M05.9 - Rheumatoid arthritis with rheumatoid factor, unspecified Is this a current diagnosis for this admission?: Yes (4) SLE (systemic lupus erythematosus related syndrome) Is this a current diagnosis for this admission?: Yes Plan: Start methotrexate (5) T2DM (type 2 diabetes mellitus) Qualifiers: Diabetes mellitus mcfp insulin use: without terminal operations supervisor use Diabetes mellitus complication status: with neurologic complications Diabetes mellitus complication detail: with polyneuropathy Qualified Code(s): E11.42 - Type 2 diabetes mellitus with diabetic polyneuropathy Is this a current diagnosis for this admission?: Yes (6) Personal history of DVT (deep vein thrombosis) Is this a current diagnosis for this admission?: Yes (7) Morbid obesity Is this a current diagnosis for this admission?: Yes (8) Hypokalemia Is this a current diagnosis for this admission?: Yes (9) Hypomagnesemia Is this a current diagnosis for this admission?: Yes (10) Acute kidney injury Is this a current diagnosis for this admission?: Yes Plan: The serum creatinine is improving and continue present treatment strategy (11) Diarrhea Qualifiers: Diarrhea type: unspecified type Qualified Code(s): R19.7 - Diarrhea, unspecified Is this a current diagnosis for this admission?: Yes (12) Fungal dermatitis Is this a current diagnosis for this admission?: Yes Plan: Start Lamisil - Time Time Spent with patient: 35 or more minutes Level of Care: IMCU Medications reviewed and adjusted accordingly: Yes Anticipated discharge: Home Anticipated DC Timeframe: within 72 hours
[2020-06-18] MEDS: ATORVASTATIN CALCIUM 10 MG TABLET PO SCH (21:32)
[2020-06-18] MEDS: TERBINAFINE HCL 250 MG TABLET PO SCH (21:32)
[2020-06-18] MEDS: PANTOPRAZOLE SODIUM 20 MG TABLET.DR PO SCH (23:23)
[2020-06-19] MEDS: NORMAL SALINE 1000 ML 1,000 ML IV PRN ×3 (02:00→20:29)
[2020-06-19] MEDS: ACETAMINOPHEN SOLN 325 MG/10.15 ML UDCUP PO PRN ×3 (04:56→21:48)
[2020-06-19] MEDS: AZTREONAM 1 GM in DEXTROSE 5%-WATER 50 ML IV SCH ×3 (05:15→21:49)
[2020-06-19] MEDS: PANTOPRAZOLE SODIUM 20 MG TABLET.DR PO SCH (05:15)
[2020-06-19] MEDS: VALSARTAN 160 MG TABLET PO SCH (09:01)
[2020-06-19] MEDS: HYDROCHLOROTHIAZIDE 12.5 MG TABLET PO SCH (09:02)
[2020-06-19] MEDS: METOPROLOL SUCCINATE 50 MG TAB.SR.24H PO SCH (09:02)
[2020-06-19] MEDS: HYDROXYCHLOROQUINE SULFATE 200 MG TABLET PO SCH (09:09)
[2020-06-19] MEDS: LACTOBACILLUS ACIDOPHILUS 250 MG TAB PO SCH ×2 (09:09→21:49)
[2020-06-19] MEDS: CYCLOSPORINE 0.05% OPH EMULSIO 0.4 ML DROPERETTE OU SCH (09:09)
[2020-06-19] MEDS: APIXABAN 5 MG TABLET PO SCH ×2 (09:09→21:49)
[2020-06-19] MEDS: FOLIC ACID 1 MG TABLET PO SCH (09:09)
[2020-06-19] MEDS: TERBINAFINE HCL 250 MG TABLET PO SCH (09:09)
[2020-06-19] MEDS: HYDROCODONE/ACETAMINOPHEN 5-325 MG TABLET PO PRN ×2 (09:18→16:50)
--- NOTE | 2020-06-19 15:36 | RADIOLOGY REPORT (SQ) ---
EXAM DESCRIPTION: U/S EXTREMITY NONVASCULAR LTD IMAGES COMPLETED DATE/TIME: 06/19/2020 3:16 pm REASON FOR STUDY: swelling of the left forearm ? abscess RA nodules COMPARISON: None. TECHNIQUE: Dynamic and static grayscale images acquired of the localized site of clinical concern an d recorded on PACS. Additional selected color Doppler and spectral images recorded. SITE OF CONCERN: Left forearm LIMITATIONS: None. FINDINGS: SKIN AND SUBCUTANEOUS TISSUES: Diffuse subcutaneous edema. No focal abscess or drainable fluid collections. DEEP SOFT TISSUES/MUSCLES: No masses. No fluid collections. No edema. VASCULAR: No increased or decreased vascularity. No occlusions. OTHER: No other significant finding. IMPRESSION: Diffuse soft tissue edema. No drainable fluid collections. TECHNICAL DOCUMENTATION: JOB ID: [id number] [address] [employer] [address]- All Rights Reserved Reading location - IP/workstation name: [email or web address]
[2020-06-19 15:37] LABS: A/G RATIO. 1.1 (0.7-1.7); ALBUMIN 3 2.5 g/dL (2.9-4.4); ALPHA-1-GLOBULIN 0.4 g/dL (0.0-0.4); BETA GLOBULIN 0.7 g/dL (0.7-1.3); GAMMA GLOBULINS 0.6 g/dL (0.4-1.8); IMMUNOGLOBULIN A 313 mg/dL (64-422); IMMUNOGLOBULIN G 546 mg/dL (586-1602); IMMUNOGLOBULIN M 143 mg/dL (26-217)
[2020-06-19 16:23] LABS: MONOCLONAL-SPIKE 0.3 g/dL (Not Observ)
[2020-06-19 17:49] LABS: ALBUMIN 2.3 g/dL (3.5-5.0); ALKALINE PHOSPHATASE 53 U/L (38-126); ANION GAP 6 (5-19); ASPARTATE AMINO TRANSFERASE 32 U/L (14-36); BILIRUBIN,DIRECT 0.3 mg/dL (0.0-0.4); BILIRUBIN,TOTAL 0.3 mg/dL (0.2-1.3); BLOOD UREA NITROGEN 16 mg/dL (7-20); CALCIUM 8.6 mg/dL (8.4-10.2); CARBON DIOXIDE 20 mmol/L (22-30); CHLORIDE 113 mmol/L (98-107); GLUCOSE 125 mg/dL (75-110); POTASSIUM 3.8 mmol/L (3.6-5.0); TOTAL PROTEIN 4.7 g/dL (6.3-8.2)
[2020-06-19] MEDS: HYDROCORTISONE SOD SUCCINATE INJ/PF 100 MG/2 ML SDV IV SCH (18:38)
--- NOTE | 2020-06-19 19:19 | PDOC PROGRESS REPORT ---
Subjective Progress Note for:: 06/19/20 Subjective:: Patient seen by the bedside, she has an area of swelling circumferentially in the left forearm it is tender to touch, she cannot get MRI because she is very claustrophobic,, Ultrasound of the forearm demonstrated no discernible abscess collection, The serum M spike was slight elevated, consult oncology Reason For Visit: SEVERE CELLULITIS OF THE LEFT UPPER EXTREMITY, Physical Exam Vital Signs: Temp Pulse Resp BP Pulse Ox 98.1 F 112 H 18 116/58 L 100 06/19/20 10:59 06/19/20 10:59 06/19/20 10:59 06/19/20 10:59 06/19/20 10:59 Intake & Output 06/18/20 06/19/20 06/20/20 06:59 06:59 06:59 Intake Total 470 2703 860 Balance 470 2703 860 Weight 92 kg 93 kg General appearance: PRESENT: no acute distress Eye exam: PRESENT: PERRLA Respiratory exam: PRESENT: clear to auscultation saúl Cardiovascular exam: PRESENT: +S1, +S2 GI/Abdominal exam: PRESENT: soft Extremities exam: PRESENT: tenderness, other - Swelling of the left forearm Neurological exam: PRESENT: alert Results Laboratory Results: 06/18/20 05:55 06/19/20 17:00 06/16/20 06/19/20 11:30 17:00 Sodium 138.9 Potassium 3.8 Chloride 113 H Carbon Dioxide 20 L Anion Gap 6 BUN 16 Creatinine 1.38 H Est GFR ( Amer) 45 L Glucose 125 H Calcium 8.6 Total Bilirubin 0.3 AST 32 Alkaline Phosphatase 53 Total Protein 5.0 L 4.7 L Albumin 2.3 L 06/15/20 06/15/20 06/15/20 11:56 11:56 16:20 Creatine Kinase 99 79 CK-MB (CK-2) 0.52 Troponin I 0.022 06/15/20 06/15/20 06/15/20 16:20 22:58 22:58 Creatine Kinase 69 CK-MB (CK-2) 0.41 0.36 Troponin I 0.023 0.020 Impressions: Renal Ultrasound 06/16/20 00:00 IMPRESSION: No hydronephrosis. Chest X-Ray 06/18/20 00:00 IMPRESSION: NO ACUTE RADIOGRAPHIC FINDING IN THE CHEST. Extremity Ultrasound 06/19/20 00:00 IMPRESSION: Diffuse soft tissue edema. No drainable fluid collections. Assessment & Plan - Diagnosis (1) Cellulitis of left upper arm Is this a current diagnosis for this admission?: Yes (2) Failure of outpatient treatment Is this a current diagnosis for this admission?: Yes (3) Rheumatoid arthritis Qualifiers: Rheumatoid arthritis location: unspecified site Rheumatoid factor presence: with rheumatoid factor Qualified Code(s): M05.9 - Rheumatoid arthritis with rheumatoid factor, unspecified Is this a current diagnosis for this admission?: Yes Plan: She has obvious acute inflammation of rheumatoid arthritis, start hydrocortisone (4) SLE (systemic lupus erythematosus related syndrome) Is this a current diagnosis for this admission?: Yes (5) T2DM (type 2 diabetes mellitus) Qualifiers: Diabetes mellitus meterman insulin use: without detention use Diabetes mellitus complication status: with neurologic complications Diabetes mellitus complication detail: with polyneuropathy Qualified Code(s): E11.42 - Type 2 diabetes mellitus with diabetic polyneuropathy Is this a current diagnosis for this admission?: Yes (6) Personal history of DVT (deep vein thrombosis) Is this a current diagnosis for this admission?: Yes (7) Morbid obesity Is this a current diagnosis for this admission?: Yes (8) Hypokalemia Is this a current diagnosis for this admission?: Yes (9) Hypomagnesemia Is this a current diagnosis for this admission?: Yes (10) Acute kidney injury Is this a current diagnosis for this admission?: Yes Plan: improving (11) Diarrhea Qualifiers: Diarrhea type: unspecified type Qualified Code(s): R19.7 - Diarrhea, unspecified Is this a current diagnosis for this admission?: Yes (12) Fungal dermatitis Is this a current diagnosis for this admission?: Yes (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
[2020-06-19] MEDS: ATORVASTATIN CALCIUM 10 MG TABLET PO SCH (21:49)
[2020-06-20] MEDS: HYDROCORTISONE SOD SUCCINATE INJ/PF 100 MG/2 ML SDV IV SCH ×3 (01:30→18:14)
[2020-06-20] MEDS: AZTREONAM 1 GM in DEXTROSE 5%-WATER 50 ML IV SCH ×3 (05:22→22:28)
[2020-06-20] MEDS: PANTOPRAZOLE SODIUM 20 MG TABLET.DR PO SCH (05:23)
[2020-06-20] MEDS: NORMAL SALINE 1000 ML 1,000 ML IV PRN ×2 (05:25→15:54)
--- NOTE | 2020-06-20 08:43 | PDOC CONSULTATION ---
Consultation Consult Date: 06/20/20 Attending physician:: HAYES BRAY Provider Consulted: LIZA VARGAS Consult reason:: Monoclonal gammopathy History of Present Illness Admission Date/PCP: 06/15/20 10:38 HAYES BRAY MD Patient complains of: Weakness, diarrhea History of Present Illness: ANUSHKA ANNE is a 74 year old female who presents with several days of weakness and diarrhea, ultimately was found to be in acute on chronic renal failure, was very weak, does have longstanding history of severe rheumatoid arthritis, with multiple complications related to that, upon admission was found to be anemic and had a work-up done which indicated M spike of 0.3, immunofixation indicated an IgA monoclonal gammopathy. Patient has had some imaging done but there is no evidence of bone problems. With aggressive hydration creatinine is come down to 1.38. Past Medical History Cardiac Medical History: Reports: Congestive Heart Failure, Coronary Artery Disease - H/O VALVE D/O, DVT, Myocardial Infarction - 1997- MILD , Hyperlipidema, Hypertension - ON MEDS Pulmonary Medical History: Reports: Asthma - use inhaler PRN Denies: Bronchitis, Chronic Obstructive Pulmonary Disease (COPD) - TB 50 YRS AGO, Pneumonia Neurological Medical History: Denies: Seizures Endocrine Medical History: Reports: Diabetes Mellitus Type 2 GI Medical History: Reports: Hiatal Hernia - no px now Denies: Hepatitis Musculoskeltal Medical History: Reports: Arthritis - RA, OSTEO, PSORIATIC Psychiatric Medical History: Denies: Depression Hematology: Reports: Anemia - YRS AGO Denies: Sickle Cell Disease Past Surgical History Past Surgical History: Reports: Hysterectomy, Tubal Ligation Denies: Amputation, Mastectomy, Pacemaker Social History Information Source: Patient Smoking Status: Former Smoker Frequency of Alcohol Use: None Hx Recreational Drug Use: No Hx Prescription Drug Abuse: No - Advance Directive Resuscitation Status: Full Code Family History Family History: Reviewed & Not Pertinent Parental Family History Reviewed: Yes Children Family History Reviewed: Yes Sibling(s) Family History Reviewed.: Yes Medication/Allergy Home Medications: Fluticasone Propionate [Flonase Nasal [place] 50 Mcg/[place] 16 gm] 2 sprays NASL DAILYP PRN 12/21/14 Folic Acid 1 mg PO SUMOWETHFRSA@1000 12/21/14 Hydroxychloroquine Sulfate [Plaquenil 200 mg Tablet] 200 mg PO BID 12/21/14 Pravastatin Sodium [Pravachol] 40 mg PO QHS 12/21/14 Valsartan/Hydrochlorothiazide [Diovan Hct 160-12.5 mg Tab] 1 tab PO DAILY 12/21/14 Apixaban [Eliquis 5 mg Tablet] 5 mg PO Q12 03/12/15 Levocetirizine Dihydrochloride [Xyzal 5 mg Tablet] 5 mg PO DAILYP PRN 03/12/15 Metoprolol Succinate [Toprol Xl 50 mg Tab.sr] 100 mg PO DAILY 03/12/15 Prednisone 5 mg PO DAILY 03/12/15 Cyclosporine 0.05% Oph Emulsio [Restasis 0.05% Opthalmic Droperette] 1 drop OU DAILY 01/30/19 Hydrocodone Bit/Acetaminophen [Hydrocodon-Acetaminophen 5-325] 1 each PO TIDP PRN 01/30/19 Albuterol Sulfate [Ventolin 0.083% Neb 2.5 mg/3 mL Ampul] 1 vial NEB RTQ6HP PRN 06/15/20 Ergocalciferol (Vitamin D2) [Drisdol 50,000 unit (1.25MG) Capsule] 50,000 unit PO MO@1000 06/15/20 Methotrexate Sodium [Rheumatrex 2.5 mg Tablet] 20 mg PO TU@1000 06/15/20 Ondansetron HCl [Zofran 4 mg Tablet] 4 mg PO Q4HP PRN 06/15/20 Pantoprazole Sodium [Protonix [address] Tablet] 20 mg PO Q6AM 06/15/20 Tizanidine HCl [Zanaflex 4 mg Tablet] 4 mg PO Q8HP PRN 06/15/20 Allergies/Adverse Reactions: Iodinated Contrast Media [IV Dye, Iodine Containing] Allergy (Verified 01/31/19 14:55) ketorolac tromethamine [From Toradol] Allergy (Verified 01/31/19 14:55) Penicillins Allergy (Verified 01/31/19 14:55) Shellfish * [Shellfish] Allergy (Verified 01/31/19 14:55) acetaminophen [From Percocet] Adverse Reaction (Verified 01/31/19 14:55) oxycodone HCl [From Percocet] Adverse Reaction (Verified 01/31/19 14:55) Review of Systems Constitutional: ABSENT: chills, fever(s), headache(s), weight gain, weight loss Eyes: ABSENT: visual disturbances Ears: ABSENT: hearing changes Cardiovascular: ABSENT: chest pain, dyspnea on exertion, edema, orthropnea, pa lpitations Respiratory: ABSENT: cough, hemoptysis Gastrointestinal: ABSENT: abdominal pain, constipation, diarrhea, hematemesis, hematochezia, nausea, vomiting Genitourinary: ABSENT: dysuria, hematuria Musculoskeletal: ABSENT: joint swelling Integumentary: ABSENT: rash, wounds Neurological: ABSENT: abnormal gait, abnormal speech, confusion, dizziness, focal weakness, syncope Psychiatric: ABSENT: anxiety, depression, homidical ideation, suicidal ideation Endocrine: ABSENT: cold intolerance, heat intolerance, polydipsia, polyuria Hematologic/Lymphatic: ABSENT: easy bleeding, easy bruising Physical Exam Vital Signs: Temp Pulse Resp BP Pulse Ox 98.1 F 99 18 145/66 H 100 06/20/20 08:20 06/20/20 08:20 06/20/20 08:20 06/20/20 08:20 06/20/20 08:20 Intake & Output 06/19/20 06/20/20 06/21/20 06:59 06:59 06:59 Intake Total 2703 3510 Balance 2703 3510 Weight 93 kg 107 kg General appearance: PRESENT: no acute distress, well-developed, well-nourished Head exam: PRESENT: atraumatic, normocephalic Eye exam: PRESENT: conjunctiva pink, EOMI, PERRLA. ABSENT: scleral icterus Ear exam: PRESENT: normal external ear exam Mouth exam: PRESENT: moist, tongue midline Neck exam: ABSENT: carotid bruit, JVD, lymphadenopathy, thyromegaly Respiratory exam: PRESENT: clear to auscultation saúl. ABSENT: rales, rhonchi, wheezes Cardiovascular exam: PRESENT: RRR. ABSENT: diastolic murmur, rubs, systolic murmur Pulses: PRESENT: normal dorsalis pedis pul Vascular exam: PRESENT: normal capillary refill GI/Abdominal exam: PRESENT: normal bowel sounds, soft. ABSENT: distended, guarding, mass, organolmegaly, rebound, tenderness Rectal exam: PRESENT: deferred Extremities exam: PRESENT: full ROM. ABSENT: calf tenderness, clubbing, pedal edema Neurological exam: PRESENT: alert, awake, oriented to person, oriented to place, oriented to time, oriented to situation, CN II-XII grossly intact. ABSENT: motor sensory deficit Psychiatric exam: PRESENT: appropriate affect, normal mood. ABSENT: homicidal ideation, suicidal ideation Skin exam: PRESENT: dry, intact, warm. ABSENT: cyanosis, rash Results Laboratory Results: 06/18/20 05:55 06/19/20 17:00 06/16/20 06/19/20 11:30 17:00 Sodium 138.9 Potassium 3.8 Chloride 113 H Carbon Dioxide 20 L Anion Gap 6 BUN 16 Creatinine 1.38 H Est GFR ( Amer) 45 L Glucose 125 H Calcium 8.6 Total Bilirubin 0.3 AST 32 Alkaline Phosphatase 53 Total Protein 5.0 L 4.7 L Albumin 2.3 L 06/15/20 12:58 Clean Catch Midstream Urine Culture - Final Proteus Mirabilis Enterococcus Faecalis(Group D) 06/15/20 06/15/20 06/15/20 11:56 11:56 16:20 Creatine Kinase 99 79 CK-MB (CK-2) 0.52 Troponin I 0.022 06/15/20 06/15/20 06/15/20 16:20 22:58 22:58 Creatine Kinase 69 CK-MB (CK-2) 0.41 0.36 Troponin I 0.023 0.020 Impressions: Renal Ultrasound 06/16/20 00:00 IMPRESSION: No hydronephrosis. Chest X-Ray 06/18/20 00:00 IMPRESSION: NO ACUTE RADIOGRAPHIC FINDING IN THE CHEST. Extremity Ultrasound 06/19/20 00:00 IMPRESSION: Diffuse soft tissue edema. No drainable fluid collections. Assessment & Plan - Diagnosis (1) Monoclonal paraproteinemia Is this a current diagnosis for this admission?: Yes Plan: We will do a skeletal survey today. But otherwise it is probable that this is just a monoclonal gammopathy, it may be related in part to the rheumatoid arthritis, sometimes the renal failure itself can cause this as well. Regardless, we will need to monitor this as an outpatient. If skeletal survey indicates bone lesions she will need bone marrow biopsy. If skeletal survey is negative we will set up outpatient follow-up for monitoring this monoclonal protein. - Time Time Spent: Greater than 70 Minutes
[2020-06-20 09:51] LABS: HEMATOCRIT 26.6 % (36.0-47.0); HEMOGLOBIN 8.9 g/dL (12.0-15.5); MEAN CORPUSCULAR HEMOGLOBIN 34.2 pg (27.0-33.4); MEAN CORPUSCULAR HGB CONC 33.4 g/dL (32.0-36.0); MEAN CORPUSCULAR VOLUME 102 fl (80-97); PLATELET COUNT 343 10^3/uL (150-450); RED CELL DISTRIBUTION WIDTH 17.2 % (11.5-14.0); WHITE BLOOD COUNT 9.5 10^3/uL (4.0-10.5)
[2020-06-20 10:12] LABS: ALBUMIN 2.6 g/dL (3.5-5.0); ALKALINE PHOSPHATASE 62 U/L (38-126); ANION GAP 6 (5-19); ASPARTATE AMINO TRANSFERASE 29 U/L (14-36); BILIRUBIN,DIRECT 0.3 mg/dL (0.0-0.4); BILIRUBIN,TOTAL 0.3 mg/dL (0.2-1.3); BLOOD UREA NITROGEN 13 mg/dL (7-20); CALCIUM 9.2 mg/dL (8.4-10.2); CARBON DIOXIDE 19 mmol/L (22-30); CHLORIDE 115 mmol/L (98-107); GLUCOSE 178 mg/dL (75-110); POTASSIUM 3.9 mmol/L (3.6-5.0); TOTAL PROTEIN 5.3 g/dL (6.3-8.2)
[2020-06-20] MEDS: METOPROLOL SUCCINATE 50 MG TAB.SR.24H PO SCH (10:18)
[2020-06-20] MEDS: APIXABAN 5 MG TABLET PO SCH ×2 (10:18→22:28)
[2020-06-20] MEDS: LACTOBACILLUS ACIDOPHILUS 250 MG TAB PO SCH ×2 (10:18→22:27)
[2020-06-20] MEDS: FOLIC ACID 1 MG TABLET PO SCH (10:19)
[2020-06-20] MEDS: HYDROCHLOROTHIAZIDE 12.5 MG TABLET PO SCH (10:21)
[2020-06-20] MEDS: CYCLOSPORINE 0.05% OPH EMULSIO 0.4 ML DROPERETTE OU SCH (10:21)
[2020-06-20] MEDS: TERBINAFINE HCL 250 MG TABLET PO SCH (10:21)
[2020-06-20 10:24] LABS: ABSOLUTE LYMPHOCYTES# (MANUAL) 0.4 10^3/uL (0.5-4.7); ABSOLUTE MONOCYTES # (MANUAL) 0.2 10^3/uL (0.1-1.4); BASOPHILS % (MANUAL) 0 % (0-2); EOSINOPHILS % (MANUAL) 0 % (0-6); LYMPHOCYTES % (MANUAL) 1 % (13-45); MONOCYTES % (MANUAL) 2 % (3-13); NUCLEATED RED BLOOD CELLS 2 /100 WBC (0); SEGMENTED NEUTROPHILS % (MAN) 94 % (42-78); TOTAL CELLS COUNTED 100
[2020-06-20 10:26] LABS: ANISOCYTOSIS 1+; BURR CELLS 1+; OVALOCYTES 1+; PLATELET CLUMPS PRESENT; PLATELET COMMENT ADEQUATE; POIKILOCYTOSIS 1+; POLYCHROMASIA SLIGHT
[2020-06-20] MEDS: VALSARTAN 160 MG TABLET PO SCH (13:22)
[2020-06-20] MEDS: HYDROCODONE/ACETAMINOPHEN 5-325 MG TABLET PO PRN (15:50)
--- NOTE | 2020-06-20 16:11 | RADIOLOGY REPORT (SQ) ---
EXAM DESCRIPTION: BONE SURVEY COMPLETE IMAGES COMPLETED DATE/TIME: 06/20/2020 3:43 pm REASON FOR STUDY: monoclonal gammapathy COMPARISON: None. TECHNIQUE: Images of the axial and proximal appendicular skeleton are obtained, along with lateral s kull and frontal chest films. LIMITATIONS: None. FINDINGS: AP CHEST: No bony findings. Lungs are clear. LATERAL SKULL: No worrisome bone lesions. AP BOTH HUMERI: No worrisome bone lesions. TWO-VIEW LUMBAR SPINE: No worrisome bone lesions. TWO-VIEW THORACIC SPINE: No worrisome bone lesions. AP PELVIS: No worrisome bone lesions. AP BOTH FEMURS: No worrisome bone lesions. OTHER: No other significant finding. IMPRESSION: Negative bone survey. Reading location - IP/workstation name: [email or web address]
[2020-06-20 17:18] LABS: VANCOMYCIN,TROUGH 9.2 ug/mL (5.0-20.0)
[2020-06-20] MEDS ORDERED: VANCOMYCIN HCL 1,000 MG in DEXTROSE 5%-WATER 250 ML IV SCH (19:00)
--- NOTE | 2020-06-20 20:22 | PDOC PROGRESS REPORT ---
Subjective Progress Note for:: 06/20/20 Subjective:: Patient seen by the bedside,She was seen today by the oncologist, Dr. Maguire, concerning the serum M spike skeletal survey was obtained which was negative, I I reviewed his notes and his recommendation regarding outpatient follow-up if negative skeletal survey. this note Chronic kidney function has normalized, the inflammatory process that involve the joints of the hand and the swelling on the left upper extremities have all improved. She was started yesterday on intravenous hydrocortisone she will continue same treatment today, hopefully discharge home tomorrow Reason For Visit: SEVERE CELLULITIS OF THE LEFT UPPER EXTREMITY, Physical Exam Vital Signs: Temp Pulse Resp BP Pulse Ox 98.5 F 72 16 120/36 L 100 06/20/20 19:33 06/20/20 19:33 06/20/20 19:33 06/20/20 19:33 06/20/20 19:33 Intake & Output 06/19/20 06/20/20 06/21/20 06:59 06:59 06:59 Intake Total 2703 3510 1690 Balance 2703 3510 1690 Weight 93 kg 107 kg 107 kg General appearance: PRESENT: no acute distress Eye exam: PRESENT: PERRLA Respiratory exam: PRESENT: clear to auscultation saúl Cardiovascular exam: PRESENT: +S1, +S2 GI/Abdominal exam: PRESENT: soft Extremities exam: PRESENT: tenderness Neurological exam: PRESENT: alert, CN II-XII grossly intact Results Laboratory Results: 06/20/20 09:25 06/20/20 09:25 06/20/20 06/20/20 09:25 09:25 WBC 9.5 RBC 2.60 L Hgb 8.9 L Hct 26.6 L MCV 102 H MCH 34.2 H MCHC 33.4 RDW 17.2 H Plt Count 343 Seg Neutrophils % Not Reportable Sodium 140.2 Potassium 3.9 Chloride 115 H Carbon Dioxide 19 L Anion Gap 6 BUN 13 Creatinine 1.12 Est GFR ( Amer) 57 L Glucose 178 H Calcium 9.2 Total Bilirubin 0.3 AST 29 Alkaline Phosphatase 62 Total Protein 5.3 L Albumin 2.6 L 06/15/20 12:50 Blood Blood Culture - Final NO GROWTH IN 5 DAYS 06/15/20 11:56 Blood Blood Culture - Final NO GROWTH IN 5 DAYS 06/18/20 12:27 Clean Catch Midstream Urine Culture - Final NO GROWTH 2 DAYS 06/15/20 12:58 Clean Catch Midstream Urine Culture - Final Proteus Mirabilis Enterococcus Faecalis(Group D) 06/15/20 06/15/20 06/15/20 11:56 11:56 16:20 Creatine Kinase 99 79 CK-MB (CK-2) 0.52 Troponin I 0.022 06/15/20 06/15/20 06/15/20 16:20 22:58 22:58 Creatine Kinase 69 CK-MB (CK-2) 0.41 0.36 Troponin I 0.023 0.020 Impressions: Renal Ultrasound 06/16/20 00:00 IMPRESSION: No hydronephrosis. Chest X-Ray 06/18/20 00:00 IMPRESSION: NO ACUTE RADIOGRAPHIC FINDING IN THE CHEST. Extremity Ultrasound 06/19/20 00:00 IMPRESSION: Diffuse soft tissue edema. No drainable fluid collections. Skeletal Survey 06/20/20 00:00 IMPRESSION: Negative bone survey. Assessment & Plan - Diagnosis (1) Cellulitis of left upper arm Is this a current diagnosis for this admission?: Yes Plan: Improved on present regimen, continue same (2) Failure of outpatient treatment Is this a current diagnosis for this admission?: Yes (3) Rheumatoid arthritis Qualifiers: Rheumatoid arthritis location: unspecified site Rheumatoid factor presence: with rheumatoid factor Qualified Code(s): M05.9 - Rheumatoid arthritis with rheumatoid factor, unspecified Is this a current diagnosis for this admission?: Yes Plan: Continue treatment (4) SLE (systemic lupus erythematosus related syndrome) Is this a current diagnosis for this admission?: Yes (5) T2DM (type 2 diabetes mellitus) Qualifiers: Diabetes mellitus marine oil terminal superintendent insulin use: without longterm use Diabetes mellitus complication status: with neurologic complications Diabetes mellitus complication detail: with polyneuropathy Qualified Code(s): E11.42 - Type 2 diabetes mellitus with diabetic polyneuropathy Is this a current diagnosis for this admission?: Yes (6) Personal history of DVT (deep vein thrombosis) Is this a current diagnosis for this admission?: Yes (7) Morbid obesity Is this a current diagnosis for this admission?: Yes (8) Hypokalemia Is this a current diagnosis for this admission?: Yes (9) Hypomagnesemia Is this a current diagnosis for this admission?: Yes (10) Acute kidney injury Is this a current diagnosis for this admission?: Yes Plan: This is resolved (11) Diarrhea Qualifiers: Diarrhea type: unspecified type Qualified Code(s): R19.7 - Diarrhea, unspecified Is this a current diagnosis for this admission?: Yes (12) Fungal dermatitis Is this a current diagnosis for this admission?: Yes (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 Lamisil she be discharge home tomorrow
[2020-06-20] MEDS: ATORVASTATIN CALCIUM 10 MG TABLET PO SCH (22:28)
[2020-06-21] MEDS: HYDROCORTISONE SOD SUCCINATE INJ/PF 100 MG/2 ML SDV IV SCH ×2 (01:11→10:23)
[2020-06-21] MEDS: NORMAL SALINE 1000 ML 1,000 ML IV PRN (03:41)
[2020-06-21] MEDS: AZTREONAM 1 GM in DEXTROSE 5%-WATER 50 ML IV SCH ×2 (05:57→14:30)
[2020-06-21] MEDS: PANTOPRAZOLE SODIUM 20 MG TABLET.DR PO SCH (05:57)
--- NOTE | 2020-06-21 07:57 | PDOC PROGRESS REPORT ---
Subjective Progress Note for:: 06/21/20 Subjective:: Pt doing ok this am, skeletal survey negative. Daughter will make appt w our office for f/u and monitoring of MGUS Reason For Visit: SEVERE CELLULITIS OF THE LEFT UPPER EXTREMITY, Physical Exam Vital Signs: Temp Pulse Resp BP Pulse Ox 98.1 F 69 16 122/40 L 100 06/20/20 23:52 06/20/20 23:52 06/20/20 23:52 06/20/20 23:52 06/20/20 23:52 Intake & Output 06/20/20 06/21/20 06/22/20 06:59 06:59 06:59 Intake Total 3510 2940 Balance 3510 2940 Weight 107 kg 124.5 kg General appearance: PRESENT: no acute distress, well-developed, well-nourished Head exam: PRESENT: atraumatic, normocephalic Eye exam: PRESENT: conjunctiva pink, EOMI, PERRLA. ABSENT: scleral icterus Ear exam: PRESENT: normal external ear exam Mouth exam: PRESENT: moist, tongue midline Neck exam: ABSENT: carotid bruit, JVD, lymphadenopathy, thyromegaly Respiratory exam: PRESENT: clear to auscultation saúl. ABSENT: rales, rhonchi, wheezes Cardiovascular exam: PRESENT: RRR. ABSENT: diastolic murmur, rubs, systolic murmur Pulses: PRESENT: normal dorsalis pedis pul Vascular exam: PRESENT: normal capillary refill GI/Abdominal exam: PRESENT: normal bowel sounds, soft. ABSENT: distended, guarding, mass, organolmegaly, rebound, tenderness Rectal exam: PRESENT: deferred Extremities exam: PRESENT: full ROM. ABSENT: calf tenderness, clubbing, pedal edema Neurological exam: PRESENT: alert, awake, oriented to person, oriented to place, oriented to time, oriented to situation, CN II-XII grossly intact. ABSENT: m otor sensory deficit Psychiatric exam: PRESENT: appropriate affect, normal mood. ABSENT: homicidal ideation, suicidal ideation Skin exam: PRESENT: dry, intact, warm. ABSENT: cyanosis, rash Results Laboratory Results: 06/20/20 09:25 06/20/20 09:25 06/20/20 06/20/20 09:25 09:25 WBC 9.5 RBC 2.60 L Hgb 8.9 L Hct 26.6 L MCV 102 H MCH 34.2 H MCHC 33.4 RDW 17.2 H Plt Count 343 Seg Neutrophils % Not Reportable Sodium 140.2 Potassium 3.9 Chloride 115 H Carbon Dioxide 19 L Anion Gap 6 BUN 13 Creatinine 1.12 Est GFR ( Amer) 57 L Glucose 178 H Calcium 9.2 Total Bilirubin 0.3 AST 29 Alkaline Phosphatase 62 Total Protein 5.3 L Albumin 2.6 L 06/15/20 12:50 Blood Blood Culture - Final NO GROWTH IN 5 DAYS 06/15/20 11:56 Blood Blood Culture - Final NO GROWTH IN 5 DAYS 06/18/20 12:27 Clean Catch Midstream Urine Culture - Final NO GROWTH 2 DAYS 06/15/20 12:58 Clean Catch Midstream Urine Culture - Final Proteus Mirabilis Enterococcus Faecalis(Group D) 06/15/20 06/15/20 06/15/20 11:56 11:56 16:20 Creatine Kinase 99 79 CK-MB (CK-2) 0.52 Troponin I 0.022 06/15/20 06/15/20 06/15/20 16:20 22:58 22:58 Creatine Kinase 69 CK-MB (CK-2) 0.41 0.36 Troponin I 0.023 0.020 Impressions: Renal Ultrasound 06/16/20 00:00 IMPRESSION: No hydronephrosis. Chest X-Ray 06/18/20 00:00 IMPRESSION: NO ACUTE RADIOGRAPHIC FINDING IN THE CHEST. Extremity Ultrasound 06/19/20 00:00 IMPRESSION: Diffuse soft tissue edema. No drainable fluid collections. Skeletal Survey 06/20/20 00:00 IMPRESSION: Negative bone survey. Assessment & Plan - Diagnosis (1) Monoclonal paraproteinemia Is this a current diagnosis for this admission?: Yes Plan: Appears to be an MGUS thus far, will follow next as outpt - Time Time Spent with patient: 15-24 minutes
[2020-06-21] MEDS: HYDROCHLOROTHIAZIDE 12.5 MG TABLET PO SCH (10:22)
[2020-06-21] MEDS: APIXABAN 5 MG TABLET PO SCH (10:22)
[2020-06-21] MEDS: METOPROLOL SUCCINATE 50 MG TAB.SR.24H PO SCH (10:23)
[2020-06-21] MEDS: LACTOBACILLUS ACIDOPHILUS 250 MG TAB PO SCH (10:23)
[2020-06-21] MEDS: CYCLOSPORINE 0.05% OPH EMULSIO 0.4 ML DROPERETTE OU SCH (10:23)
[2020-06-21] MEDS: TERBINAFINE HCL 250 MG TABLET PO SCH (10:23)
[2020-06-21] MEDS: FOLIC ACID 1 MG TABLET PO SCH (10:24)
[2020-06-21] MEDS: VALSARTAN 160 MG TABLET PO SCH (13:30)
[2020-06-21] MEDS ORDERED: VANCOMYCIN HCL 1,000 MG in DEXTROSE 5%-WATER 250 ML IV SCH (15:00)
--- NOTE | 2020-06-21 16:34 | PDOC DISCHARGE SUMMARY ---
Impression - Admit/DC Date/PCP Admission Date/Primary Care Provider: 06/15/20 10:38 HAYES BRAY MD Discharge Date: 06/21/20 - Discharge Diagnosis (1) Cellulitis of left upper arm Is this a current diagnosis for this admission?: Yes (2) Failure of outpatient treatment Is this a current diagnosis for this admission?: Yes (3) Rheumatoid arthritis Is this a current diagnosis for this admission?: Yes (4) SLE (systemic lupus erythematosus related syndrome) Is this a current diagnosis for this admission?: Yes (5) T2DM (type 2 diabetes mellitus) Is this a current diagnosis for this admission?: Yes (6) Personal history of DVT (deep vein thrombosis) Is this a current diagnosis for this admission?: Yes (7) Morbid obesity Is this a current diagnosis for this admission?: Yes (8) Hypokalemia Is this a current diagnosis for this admission?: Yes (9) Hypomagnesemia Is this a current diagnosis for this admission?: Yes (10) Acute kidney injury Is this a current diagnosis for this admission?: Yes (11) Diarrhea Is this a current diagnosis for this admission?: Yes (12) Fungal dermatitis Is this a current diagnosis for this admission?: Yes (13) Monoclonal paraproteinemia Is this a current diagnosis for this admission?: Yes - Additional Information Resuscitation Status: Full Code Referrals: HAYES BRAY MD [Primary Care Provider] - Prescriptions: Terbinafine HCl [Lamisil 250 mg Tablet] 250 mg PO DAILY #30 tablet Home Medications: Fluticasone Propionate [Flonase Nasal [place] 50 Mcg/[place] 16 gm] 2 sprays NASL DAILYP PRN 12/21/14 Folic Acid 1 mg PO SUMOWETHFRSA@1000 12/21/14 Hydroxychloroquine Sulfate [Plaquenil 200 mg Tablet] 200 mg PO BID 12/21/14 Pravastatin Sodium [Pravachol] 40 mg PO QHS 12/21/14 Valsartan/Hydrochlorothiazide [Diovan Hct 160-12.5 mg Tab] 1 tab PO DAILY 12/21/14 Apixaban [Eliquis 5 mg Tablet] 5 mg PO Q12 03/12/15 Levocetirizine Dihydrochloride [Xyzal 5 mg Tablet] 5 mg PO DAILYP PRN 03/12/15 Metoprolol Succinate [Toprol Xl 50 mg Tab.sr] 100 mg PO DAILY 03/12/15 Prednisone 5 mg PO DAILY 03/12/15 Cyclosporine 0.05% Oph Emulsio [Restasis 0.05% Oph Emulsion Pf 0.4 ml] 1 drop OU DAILY 01/30/19 Hydrocodone Bit/Acetaminophen [Hydrocodon-Acetaminophen 5-325] 1 each PO TIDP PRN 01/30/19 Albuterol Sulfate [Ventolin 0.083% Neb 2.5 mg/3 mL Ampul] 1 vial NEB RTQ6HP PRN 06/15/20 Ergocalciferol (Vitamin D2) [Drisdol 50,000 unit (1.25MG) Capsule] 50,000 unit PO MO@99906/15/20 Methotrexate Sodium [Rheumatrex 2.5 mg Tablet] 20 mg PO TU@99906/15/20 Ondansetron HCl [Zofran 4 mg Tablet] 4 mg PO Q4HP PRN 06/15/20 Pantoprazole Sodium [Protonix [address] Tablet] 20 mg PO Q6AM 06/15/20 Tizanidine HCl [Zanaflex 4 mg Tablet] 4 mg PO Q8HP PRN 06/15/20 Terbinafine HCl [Lamisil 250 mg Tablet] 250 mg PO DAILY #30 tablet 06/21/20 History of Present Illiness History of Present Illness: ANUSHKA ANNE is a 74 year old female she has multiple comorbid conditions including rheumatoid arthritis, morbid obesity, type 2 diabetes mellitus, sedentary lifestyle uses wheelchair for ambulation, I saw her in the office 2 days ago, specifically June 13, 2020 when she came for evaluation of left u pper arm cellulitis, because of her multiple comorbid conditions I advised inpatient care but patient refused because she was concerned about the SARS-CoV-2 infection and the chance of being exposed to the virus so she preferred to be treated outpatient. She was prescribed clindamycin, MRSA was suspected as the most likely etiology of the cellulitis, she was advised to call me back in 2 days if no improvement. She comes in this morning complaining of worsening of her condition, I spoke to the nurse slab conditioner supervisor for bed, she was admitted directly from home to the hospital. I saw her today in the hospital on the medical floor there is worsening of the cellulitis now extensive involving the forearm. Initially it was localized to the upper arm. Hospital Course Hospital Course: Patient was admitted for the management of cellulitis of the left upper extremities, she was treated empirically with IV antibiotic, vancomycin, and aztreonam.There was acute kidney injury due to prerenal dehydration from diarrhea, The kidney injury was corrected with IV fluid, She has underlining rheumatoid arthritis there was exacerbation of the joint pains, she also was treated with IV Hydrocortisone with good result.She was found to have serum M spike, skeletal survey was negative she was seen by oncology, Dr. 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 Physical Exam Vital Signs: Temp Pulse Resp BP Pulse Ox 98.2 F 73 16 127/38 H 100 06/21/20 15:44 06/21/20 15:44 06/21/20 15:44 06/21/20 15:44 06/21/20 15:44 Intake & Output 06/20/20 06/21/20 06/22/20 06:59 06:59 06:59 Intake Total 3510 2940 240 Balance 3510 2940 240 Weight 107 kg 124.5 kg General appearance: PRESENT: no acute distress Eye exam: PRESENT: PERRLA Respiratory exam: PRESENT: clear to auscultation saúl Cardiovascular exam: PRESENT: +S1, +S2 GI/Abdominal exam: PRESENT: soft Extremities exam: ABSENT: calf tenderness, clubbing, full ROM, joint swelling, pedal edema, tenderness, +1 edema, +2 edema, other Musculoskeletal exam: PRESENT: full ROM Neurological exam: PRESENT: alert, CN II-XII grossly intact Results Laboratory Results: WBC 9.5 10^3/uL (4.0-10.5) 06/20/20 09:25 RBC 2.60 10^6/uL (3.72-5.28) L 06/20/20 09:25 Hgb 8.9 g/dL (12.0-15.5) L 06/20/20 09:25 Hct 26.6 % (36.0-47.0) L 06/20/20 09:25 MCV 102 fl (80-97) H 06/20/20 09:25 MCH 34.2 pg (27.0-33.4) H 06/20/20 09:25 MCHC 33.4 g/dL (32.0-36.0) 06/20/20 09:25 RDW 17.2 % (11.5-14.0) H 06/20/20 09:25 Plt Count 343 10^3/uL (150-450) 06/20/20 09:25 Lymph % (Auto) Not Reportable 06/20/20 09:25 [place] % (Auto) Not Reportable 06/20/20 09:25 Eos % (Auto) Not Reportable 06/20/20 09:25 Baso % (Auto) Not Reportable 06/20/20 09:25 Absolute Neuts (auto) Not Reportable 06/20/20 09:25 Absolute Lymphs (auto) Not Reportable 06/20/20 09:25 Absolute Monos (auto) Not Reportable 06/20/20 09:25 Absolute Eos (auto) Not Reportable 06/20/20 09:25 Absolute Basos (auto) Not Reportable 06/20/20 09:25 Total Counted 100 06/20/20 09:25 Seg Neutrophils % Not Reportable 06/20/20 09:25 Seg Neuts % (Manual) 94 % (42-78) H 06/20/20 09:25 Lymphocytes % (Manual) 1 % (13-45) L 06/20/20 09:25 Atypical Lymphs % 3 % (0) 06/20/20 09:25 Monocytes % (Manual) 2 % (3-13) L 06/20/20 09:25 Eosinophils % (Manual) 0 % (0-6) 06/20/20 09:25 Basophils % (Manual) 0 % (0-2) 06/20/20 09:25 Abs Neuts (Manual) 8.9 10^3/uL (1.7-8.2) H 06/20/20 09:25 Abs Lymphs (Manual) 0.4 10^3/uL (0.5-4.7) L 06/20/20 09:25 Abs Monocytes (Manual) 0.2 10^3/uL (0.1-1.4) 06/20/20 09:25 Absolute Eos (Manual) 0.0 10^3/uL (0.0-0.6) 06/20/20 09:25 Abs Basophils (Manual) 0.0 10^3/uL (0.0-0.2) 06/20/20 09:25 Nucleated RBCs 2 /100 WBC (0) 06/20/20 09:25 Clumped Platelets PRESENT 06/20/20 09:25 Platelet Comment ADEQUATE 06/20/20 09:25 Polychromasia SLIGHT 06/20/20 09:25 Poikilocytosis 1+ 06/20/20 09:25 Anisocytosis 1+ 06/20/20 09:25 Macrocytosis 2+ 06/20/20 09:25 Ovalocytes 1+ 06/20/20 09:25 Joffre Cells 1+ 06/20/20 09:25 ESR 102 mm/hr (0-30) H 06/15/20 11:56 PT 17.8 SEC (11.4-15.4) H 06/15/20 11:56 INR 1.46 06/15/20 11:56 APTT 42.6 SEC (23.5-35.8) H 06/15/20 11:56 Sodium 140.2 mmol/L (137-145) 06/20/20 09:25 Potassium 3.9 mmol/L (3.6-5.0) 06/20/20 09:25 Chloride 115 mmol/L (98-107) H 06/20/20 09:25 Carbon Dioxide 19 mmol/L (22-30) L 06/20/20 09:25 Anion Gap 6 (5-19) 06/20/20 09:25 BUN 13 mg/dL (7-20) 06/20/20 09:25 Creatinine 1.12 mg/dL (0.52-1.25) 06/20/20 09:25 Est GFR ( Amer) 57 (>60) L 06/20/20 09:25 Est GFR (MDRD) Non-Af 47 (>60) L 06/20/20 09:25 Glucose 178 mg/dL (75-110) H 06/20/20 09:25 POC Glucose 244 mg/dL (70-110) H 06/21/20 15:10 Hemoglobin A1c % 5.7 % (4.7-6.0) 06/16/20 04:44 Lactic Acid 1.5 mmol/L (0.7-2.1) 06/18/20 11:12 Calcium 9.2 mg/dL (8.4-10.2) 06/20/20 09:25 Phosphorus 2.8 mg/dL (2.5-4.5) 06/15/20 11:56 Magnesium 1.5 mg/dL (1.6-2.3) L 06/15/20 11:56 Total Bilirubin 0.3 mg/dL (0.2-1.3) 06/20/20 09:25 Direct Bilirubin 0.3 mg/dL (0.0-0.4) 06/20/20 09:25 Neonat Total Bilirubin Not Reportable 06/20/20 09:25 Neonat Direct Bilirubin Not Reportable 06/20/20 09:25 Neonat Indirect Bili Not Reportable 06/20/20 09:25 AST 29 U/L (14-36) 06/20/20 09:25 ALT 18 U/L (<35) 06/20/20 09:25 Alkaline Phosphatase 62 U/L (38-126) 06/20/20 09:25 Ammonia < 8.7 umol/L (9-33) L 06/15/20 11:56 Creatine Kinase 69 U/L (30-135) 06/15/20 22:58 CK-MB (CK-2) 0.36 ng/mL (<4.55) 06/15/20 22:58 Troponin I 0.020 ng/mL 06/15/20 22:58 C-Reactive Protein 344.3 mg/L (<10.0) H 06/15/20 11:56 Total Protein 5.3 g/dL (6.3-8.2) L 06/20/20 09:25 Albumin 2.6 g/dL (3.5-5.0) L 06/20/20 09:25 Globulin 2.5 g/dL (2.2-3.9) 06/16/20 11:30 Alb/Glob Ratio Alt Meth 1.1 (0.7-1.7) 06/16/20 11:30 Rodfk-1-Mqfxnlxrw 0.4 g/dL (0.0-0.4) 06/16/20 11:30 Ceuxr-5-Fejyzaexn 0.9 g/dL (0.4-1.0) 06/16/20 11:30 Beta Globulins 0.7 g/dL (0.7-1.3) 06/16/20 11:30 Gamma Globulins 0.6 g/dL (0.4-1.8) 06/16/20 11:30 M-Ricardo 0.3 g/dL (Not Observ) H 06/16/20 11:30 Triglycerides 122 mg/dL (<150) 06/16/20 04:44 Cholesterol 140.37 mg/dL (0-200) 06/16/20 04:44 LDL Cholesterol Direct 81 mg/dL (<100) 06/16/20 04:44 VLDL Cholesterol 24.0 mg/dL (10-31) 06/16/20 04:44 HDL Cholesterol 52 mg/dL (>40) 06/16/20 04:44 Amylase 44 U/L (30-110) 06/15/20 11:56 Lipase 103.2 U/L (23-300) 06/15/20 11:56 TSH 1.70 uIU/mL (0.47-4.68) 06/15/20 11:56 Free T4 1.98 ng/dL (0.78-2.19) 06/15/20 11:56 Immunoglobulin A 313 mg/dL (64-422) 06/16/20 11:30 Immunoglobulin G 546 mg/dL (586-1602) L 06/16/20 11:30 Immunoglobulin M 143 mg/dL (26-217) 06/16/20 11:30 Serum Immunofixation Comment (.) 06/16/20 11:30 Immunofixation Note Comment (.) 06/16/20 11:30 Urine Color KUSHAL 06/15/20 12:58 Urine Appearance CLOUDY 06/15/20 12:58 Urine pH 5.0 (5.0-9.0) 06/15/20 12:58 Ur Specific [place] 1.025 06/15/20 12:58 Urine Protein 100 mg/dL (NEGATIVE) H 06/15/20 12:58 Urine Glucose (UA) NEGATIVE mg/dL (NEGATIVE) 06/15/20 12:58 Urine Ketones NEGATIVE mg/dL (NEGATIVE) 06/15/20 12:58 Urine Blood NEGATIVE (NEGATIVE) 06/15/20 12:58 Urine Nitrite NEGATIVE (NEGATIVE) 06/15/20 12:58 Urine Bilirubin NEGATIVE (NEGATIVE) 06/15/20 12:58 Urine Urobilinogen NEGATIVE mg/dL (<2.0) 06/15/20 12:58 Ur Leukocyte Esterase NEGATIVE (NEGATIVE) 06/15/20 12:58 Urine WBC (Auto) 31 /HPF 06/15/20 12:58 Urine RBC (Auto) 8 /HPF 06/15/20 12:58 U Hyaline Cast (Auto) 23 /LPF 06/15/20 12:58 Squamous Epi Cells Auto 10 /HPF 06/15/20 12:58 U Non-Squamous Epis Auto 5 /HPF 06/15/20 12:58 Urine Mucus (Auto) MANY /LPF 06/15/20 12:58 Urine Creatinine 460.3 mg/dL (15-278) H 06/16/20 12:30 Protein/Creatinin Ratio 0.0 mg/mg (0.0-0.2) 06/16/20 12:30 Urine Total Protein 18.8 mg/dL (<12) H 06/16/20 12:30 Urine Ascorbic Acid NEGATIVE (NEGATIVE) 06/15/20 12:58 Stool Occult Blood NEGATIVE (NEGATIVE) 06/15/20 14:10 Stl C. Difficile GDH Ag NEGATIVE (NEGATIVE) 06/15/20 14:10 Stl C.difficile Tox A&B NEGATIVE (NEGATIVE) 06/15/20 14:10 Time Trough Drawn 1642 06/20/20 16:42 Vancomycin Trough 9.2 ug/mL (5.0-20.0) 06/20/20 16:42 Urine Opiates Screen NEGATIVE 06/15/20 12:58 Urine Methadone Screen NEGATIVE 06/15/20 12:58 Ur Barbiturates Screen NEGATIVE 06/15/20 12:58 Ur Phencyclidine Scrn NEGATIVE 06/15/20 12:58 Ur Amphetamines Screen NEGATIVE 06/15/20 12:58 U Benzodiazepines Scrn NEGATIVE 06/15/20 12:58 Urine Cocaine Screen NEGATIVE 06/15/20 12:58 U Marijuana (THC) Screen NEGATIVE 06/15/20 12:58 Albumin (SANDRA) 2.5 g/dL (2.9-4.4) L 06/16/20 11:30 06/15/20 06/15/20 06/15/20 11:56 16:20 22:58 CK-MB (CK-2) 0.52 0.41 0.36 Troponin I 0.022 0.023 0.020 Impressions: Renal Ultrasound 06/16/20 00:00 IMPRESSION: No hydronephrosis. Chest X-Ray 06/18/20 00:00 IMPRESSION: NO ACUTE RADIOGRAPHIC FINDING IN THE CHEST. Extremity Ultrasound 06/19/20 00:00 IMPRESSION: Diffuse soft tissue edema. No drainable fluid collections. Skeletal Survey 06/20/20 00:00 IMPRESSION: Negative bone survey. Stroke Is this a Stroke Patient?: No Acute Heart Failure Is this a Heart Failure Patient?: No
[2020-06-21 17:19] VITALS: BP 139/42
[2020-06-25] MEDS ORDERED: METHOTREXATE SODIUM 2.5 MG TABLET PO SCH (10:00)
== END 2020-06-21 18:20 | disposition home or self-care (01) | DRG 603 ==
LOC: 4S 10:38
PROVIDERS: ADMIT Internal Medicine; ATTEND Internal Medicine
DX: L03.114 Cellulitis of left upper limb (principal); N17.9 Acute kidney failure, unspecified; M06.9 Rheumatoid arthritis, unspecified; E66.01 Morbid (severe) obesity due to excess calories; E83.42 Hypomagnesemia; M32.9 Systemic lupus erythematosus, unspecified; I25.10 Atherosclerotic heart disease of native coronary artery without angina pectoris; I10 Essential (primary) hypertension; E11.42 Type 2 diabetes mellitus with diabetic polyneuropathy; E87.6 Hypokalemia; B36.9 Superficial mycosis, unspecified; B35.4 Tinea corporis; D47.2 Monoclonal gammopathy; D64.9 Anemia, unspecified; R19.7 Diarrhea, unspecified; Z86.718 Personal history of other venous thrombosis and embolism; I25.2 Old myocardial infarction; Z87.891 Personal history of nicotine dependence; Z90.49 Acquired absence of other specified parts of digestive tract; Z79.84 Long term (current) use of oral hypoglycemic drugs; Z68.37 Body mass index [BMI] 37.0-37.9, adult; Z88.0 Allergy status to penicillin; Z91.041 Radiographic dye allergy status; Z79.01 Long term (current) use of anticoagulants; Z91.013 Allergy to seafood; Z88.5 Allergy status to narcotic agent; Z88.6 Allergy status to analgesic agent
CPT/HCPCS: 36415; 71045; 76770; 76882; 77075; 80053; 80061; 80202; 80307; 81001; 82140; 82150; 82272; 82550; 82553; 82570; 82962; 83036; 83605; 83690; 83735; 84100; 84156; 84439; 84443; 84484; 85025; 85610; 85652; 85730; 86140; 86320; 87040; 87070; 87086; 87088; 87186; 87324; 87449; 94640; J1650; J1720; J2405; J3370; J3475; J3480; J3490; J7030; J7060; J7613